=== PATIENT | female | born 1950 | race Two or more races ===

== ENCOUNTER 2020-11-01 09:41 | Inpatient (IN) | payer MEDICARE, MEDICAID ==
[~2020-11-01] VITALS: Ht 154.9 cm; Wt 86.1 kg
[2020-11-01 10:17] LABS: Hemoglobin 12.5 g/dL (12.2-16.2); Mean Corpuscular Hemoglobin 30.2 pg (28.0-32.0)
[2020-11-01 10:19] LABS: Hematocrit 37.8 % (36.0-46.0); Mean Corpuscular Hgb Conc. 33.1 g/dL (32.0-36.0); Mean Corpuscular Volume 91.1 fL (80.0-100.0); Platelet Count (auto) 254 10^3/uL (140-450); Red Blood Cells 4.14 10^6/uL (4.0-5.20); Red Cell Distribution Width 14.8 % (11.8-14.3)
[2020-11-01 10:25] LABS: Band Neutrophils % (manual) 0; Basophils % (manual) 0 (0.0-2.0); Blast Cells 0; Metamyelocytes % 0; Monocytes % (manual) 0 (0-12); Myelocytes % 0; Promyelocytes % 0; Reactive Lymphocytes 0; White Blood Cell 34.4 10^3/uL (4.4-10.8)
[2020-11-01 10:33] LABS: Albumin 3.3 g/dL (3.4-5.0); Anion Gap 4 (5-15); Blood Urea Nitrogen 14 mg/dL (7-18); Calcium 8.7 mg/dL (8.5-10.1); Carbon Dioxide 29 mmol/L (21-32); Chloride 107 mmol/L (98-107); Glucose 94 mg/dL (74-106); Potassium 4.2 mmol/L (3.5-5.1); Sodium 140 mmol/L (136-145)
[2020-11-01 10:39] LABS: Alanine Aminotransferase 257 U/L (13-56); Alkaline Phosphatase 175 U/L (45-117); Aspartate Aminotransferase 111 U/L (15-37); BUN/Creatinine Ratio 19.4; Bilirubin, Total 1.6 mg/dL (0.2-1.0); GFR African American 103 mL/min; GFR Non-African American 85 mL/min; Total Protein 6.7 g/dL (6.4-8.2)
[2020-11-01 11:16] LABS: Eosinophils % (manual) 2 (0-7); Lymphocytes % (manual) 83 (10.0-50.0)
[2020-11-01 12:41] LABS: Amylase 78 U/L (25-115); Lipase 119 U/L (73-393)
[2020-11-01 15:14] LABS: Urine Bacteria NONE SEEN /hpf (None Seen); Urine Blood 1+ /uL (Negative); Urine Specific Gravity 1.009 (1.001-1.035); Urine WBC <1 /hpf (0 - 5)
[2020-11-01] MEDS ORDERED: NITROGLYCERIN 0.4 MG SL TAB SL PRN ×2 (17:15→19:45)
[2020-11-01] MEDS ORDERED: MORPHINE SULF INJ 2 MG/ML SYRINGE 1ML IV PRN ×3 (17:15→19:45)
[2020-11-01] MEDS ORDERED: PANT40T PO (17:27)
[2020-11-01] MEDS ORDERED: DOCU100T15 PO (17:27)
[2020-11-01] MEDS ORDERED: CHOL20007 PO (17:27)
[2020-11-01] MEDS ORDERED: ALBUAER3 IN (17:27)
[2020-11-01] MEDS ORDERED: MET50T PO (17:27)
[2020-11-01] MEDS ORDERED: POM PO (17:27)
[2020-11-01] MEDS ORDERED: DOCUSATE SOD 100 MG CAP PO PRN (19:45)
[2020-11-01] MEDS ORDERED: ACETAMINOPHEN 325 MG TAB PO PRN (19:45)
[2020-11-01] MEDS: SODIUM CHLORIDE 0.9% 1,000 ML IV SCH (19:45)
[2020-11-01] MEDS ORDERED: LACTATED RINGER'S 1,000 ML IV ONE (19:45)
[2020-11-01] MEDS ORDERED: PANTOPRAZOLE 40 MG/10 ML VIAL INJ IV ONE (19:45)
[2020-11-01] MEDS ORDERED: HYDROcodone-ACET 5/325MG TAB PO PRN (19:45)
[2020-11-01] MEDS ORDERED: SUCRALFATE 1 GM TAB PO ONE (19:45)
[2020-11-01] MEDS ORDERED: ONDANSETRON HCL 4 MG/2 ML VIAL IV PRN (19:45)
[2020-11-01] MEDS ORDERED: LORazepam 0.5 MG TAB PO PRN (19:45)
[2020-11-01] MEDS ORDERED: METOPROLOL SUCCINATE XL 50 MG TAB PO ONE (19:45)
[2020-11-01] MEDS ORDERED: hydrALAZINE HCL 20 MG/ML VL IV PRN (19:45)
[2020-11-01] MEDS ORDERED: ALUM & MAG HYDROX-SIMETH LIQ(MAALOX) 30 ML PO PRN (19:45)
[2020-11-01] MEDS: ATORVASTATIN 20 MG TAB PO SCH (22:00)
[2020-11-01 23:02] LABS: Cholesterol 145 mg/dL (< 200); HDL Cholesterol 49 mg/dL (40-59); LDL Cholesterol 81 mg/dL (< 100); Triglycerides 73 mg/dL (< 150)
[2020-11-02 01:20] VITALS: BP 130/76
[2020-11-02 04:52] VITALS: BP 120/75
[2020-11-02 05:13] LABS: Alcohol, Urine < 3.0 mg/dL (0-10); Amphetamine Screen, Urine NEGATIVE (NEGATIVE); Barbiturate Scree,Urine NEGATIVE (NEGATIVE); Benzodiazephine Screen, Urine NEGATIVE (NEGATIVE); Cannabinoid Screen, Urine NEGATIVE (NEGATIVE); Cocaine Screen, Urine NEGATIVE (NEGATIVE); Opiate Scree,Urine NEGATIVE (NEGATIVE); Phencyclidine Screen, Urine NEGATIVE (NEGATIVE)
[2020-11-02] MEDS: SUCRALFATE 1 GM TAB PO SCH ×4 (06:35→21:56)
[2020-11-02 08:00] VITALS: BP 110/67
[2020-11-02] MEDS ORDERED: ADENOSINE 69 MG in GIVE UN-DILUTED 0 ML IV STA (09:13)
[2020-11-02] MEDS: SODIUM CHLORIDE 0.9% 1,000 ML IV SCH ×2 (10:55→22:25)
[2020-11-02] MEDS: PANTOPRAZOLE 40 MG/10 ML VIAL INJ IV SCH (11:43)
[2020-11-02] MEDS: ENOXAPARIN SOD 40 MG/0.4 ML SYRINGE SC SCH (11:43)
[2020-11-02] MEDS: METOPROLOL SUCCINATE XL 50 MG TAB PO SCH (11:44)
[2020-11-02] MEDS: ASPirin 81 mg TAB PO SCH (11:44)
[2020-11-02 16:00] VITALS: BP 111/62
[2020-11-02] MEDS: ATORVASTATIN 20 MG TAB PO SCH (21:56)
[2020-11-02 22:00] VITALS: BP 129/63
[2020-11-03 05:00] VITALS: BP 92/69
[2020-11-03] MEDS: SUCRALFATE 1 GM TAB PO SCH ×2 (06:53→11:37)
[2020-11-03 08:53] VITALS: BP 116/52
[2020-11-03] MEDS: PANTOPRAZOLE 40 MG/10 ML VIAL INJ IV SCH (09:56)
[2020-11-03] MEDS: METOPROLOL SUCCINATE XL 50 MG TAB PO SCH (09:56)
[2020-11-03] MEDS: ENOXAPARIN SOD 40 MG/0.4 ML SYRINGE SC SCH (09:57)
[2020-11-03] MEDS: ASPirin 81 mg TAB PO SCH (09:57)
[2020-11-03] MEDS ORDERED: IMBRUVICA 140 MG PO SCH (10:00)
[2020-11-03] MEDS: SODIUM CHLORIDE 0.9% 1,000 ML IV SCH (11:37)
== END 2020-11-03 15:00 | disposition home or self-care (01) | DRG 303 ==
LOC: ER 09:41 → TELE 17:09 → TELE-EAST 23:50 → TELE-CENTR 11-02 20:30
PROVIDERS: ADMIT Hospitalist; ATTEND Family Medicine
DX: I25.10 Atherosclerotic heart disease of native coronary artery without angina pectoris (principal); C91.10 Chronic lymphocytic leukemia of B-cell type not having achieved remission; I10 Essential (primary) hypertension; E78.5 Hyperlipidemia, unspecified; D35.01 Benign neoplasm of right adrenal gland; E66.01 Morbid (severe) obesity due to excess calories; J45.909 Unspecified asthma, uncomplicated; K57.30 Diverticulosis of large intestine without perforation or abscess without bleeding; Z82.49 Family history of ischemic heart disease and other diseases of the circulatory system; Z90.710 Acquired absence of both cervix and uterus; Z68.34 Body mass index [BMI] 34.0-34.9, adult
CPT/HCPCS: 36415; 71045; 74176; 78452; 80053; 80061; 80307; 81001; 82150; 83036; 83690; 84484; 85007; 85027; 87040; 87086; 87426; 93005; 93017; 93306; 96360; C9113; G0378; J0153

== ENCOUNTER 2021-07-19 15:35 | Emergency (ER) | payer MEDICARE, MEDICAID ==
[~2021-07-19] VITALS: Ht 157.5 cm; Wt 77.6 kg
[~2021-07-19 15:35] MED LIST: ALBUAER3 IN; CHOL20007 PO; DOCU100T15 PO; MET50T PO; PANT40T PO; POM PO
[2021-07-19 16:18] LABS: Hematocrit 40.4 % (36.0-46.0); Hemoglobin 13.2 g/dL (12.2-16.2); Mean Corpuscular Hemoglobin 29.6 pg (28.0-32.0); Mean Corpuscular Hgb Conc. 32.8 g/dL (32.0-36.0); Mean Corpuscular Volume 90.3 fL (80.0-100.0); Red Blood Cells 4.47 10^6/uL (4.0-5.20); Red Cell Distribution Width 14.4 % (11.8-14.3); White Blood Cell 18.8 10^3/uL (4.4-10.8)
[2021-07-19 16:20] LABS: Basophils % (manual) 0 (0.0-2.0); Blast Cells 0; Eosinophils % (manual) 0 (0-7); Metamyelocytes % 0; Myelocytes % 0; Promyelocytes % 0; Reactive Lymphocytes 0
[2021-07-19 16:36] LABS: Albumin 3.4 g/dL (3.4-5.0); Anion Gap 4 (5-15); Blood Urea Nitrogen 16 mg/dL (7-18); CRP High Sensitivity 0.28 mg/dL (< 0.3); Calcium 8.6 mg/dL (8.5-10.1); Carbon Dioxide 29 mmol/L (21-32); Chloride 108 mmol/L (98-107); Glucose 141 mg/dL (74-106); Potassium 3.6 mmol/L (3.5-5.1); Sodium 141 mmol/L (136-145)
[2021-07-19 16:42] LABS: Alanine Aminotransferase 30 U/L (13-56); Alkaline Phosphatase 59 U/L (45-117); Aspartate Aminotransferase 32 U/L (15-37); BUN/Creatinine Ratio 15.1; Bilirubin, Total 0.4 mg/dL (0.2-1.0); GFR African American 66 mL/min; GFR Non-African American 54 mL/min; Total Protein 6.4 g/dL (6.4-8.2)
[2021-07-19 16:49] LABS: Band Neutrophils % (manual) 4; Lymphocytes % (manual) 64 (10.0-50.0); Monocytes % (manual) 2 (0-12)
[2021-07-19 17:50] VITALS: BP 112/48
== END 2021-07-19 17:52 | disposition home or self-care (01) ==
LOC: ER 15:35
DX: B34.2 Coronavirus infection, unspecified (principal); Z90.710 Acquired absence of both cervix and uterus; J45.909 Unspecified asthma, uncomplicated
CPT/HCPCS: 36415; 71045; 80053; 82728; 84484; 85007; 85027; 86141

== ENCOUNTER 2022-05-10 09:40 | Inpatient (IN) | payer MEDICARE, MEDICAID ==
[~2022-05-10] VITALS: Ht 154.9 cm; Wt 82.9 kg
[2022-05-10 10:41] LABS: Hematocrit 39.2 % (36.0-46.0); Hemoglobin 12.7 g/dL (12.2-16.2); Mean Corpuscular Hemoglobin 29.6 pg (28.0-32.0); Mean Corpuscular Hgb Conc. 32.4 g/dL (32.0-36.0); Mean Corpuscular Volume 91.4 fL (80.0-100.0); Red Blood Cells 4.29 10^6/uL (4.0-5.20); Red Cell Distribution Width 14.6 % (11.8-14.3); White Blood Cell 15.3 10^3/uL (4.4-10.8)
[2022-05-10 10:55] LABS: Band Neutrophils % (manual) 0; Basophils % (manual) 0 (0.0-2.0); Blast Cells 0; Metamyelocytes % 0; Myelocytes % 0; Promyelocytes % 0
[2022-05-10 11:00] LABS: Albumin 3.4 g/dL (3.4-5.0); Magnesium 2.2 mg/dL (1.6-2.6); Potassium 3.9 mmol/L (3.5-5.1)
[2022-05-10 11:05] LABS: BUN/Creatinine Ratio 25.3; Bilirubin, Total 0.7 mg/dL (0.2-1.0); Total Protein 6.3 g/dL (6.4-8.2)
[2022-05-10 11:25] LABS: Urine WBC None Seen /hpf (0 - 5)
[2022-05-10 11:35] LABS: Urine Bacteria NONE SEEN /hpf (None Seen); Urine Blood 1+ /uL (Negative); Urine Specific Gravity 1.007 (1.001-1.035)
[2022-05-10 12:59] LABS: Eosinophils % (manual) 1 (0-7); Lymphocytes % (manual) 71 (10.0-50.0); Monocytes % (manual) 7 (0-12); Reactive Lymphocytes 2
[2022-05-10] MEDS ORDERED: LACTATED RINGER'S 1,000 ML IV ONE (13:45)
[2022-05-10] MEDS ORDERED: METOCLOPRAMIDE HCL 5MG/ml INJ 2ml VIAL IV ONE (13:45)
[2022-05-10] MEDS ORDERED: MECLIZINE HCL 25 MG TAB PO ONE (13:45)
[2022-05-10] MEDS ORDERED: ONDANSETRON HCL 4 MG/2 ML VIAL IV PRN (16:45)
[2022-05-10] MEDS ORDERED: DOCUSATE SOD 100 MG CAP PO PRN (16:45)
[2022-05-10] MEDS ORDERED: MECLIZINE HCL 25 MG TAB PO PRN (16:45)
[2022-05-10] MEDS ORDERED: ACETAMINOPHEN 325 MG TAB PO PRN (16:45)
[2022-05-10] MEDS: ENOXAPARIN SOD 40 MG/0.4 ML SYRINGE SC SCH (18:44)
[2022-05-10] MEDS: SODIUM CHLORIDE 0.9% 1,000 ML IV SCH ×2 (18:44→21:44)
[2022-05-10] MEDS: SODIUM CHLOR 0.9% PF (SALINE LOCK) 10ML VIAL/SYR IV SCH (21:44)
[2022-05-10 22:00] VITALS: BP 145/64
[2022-05-11 05:00] VITALS: BP 131/50
[2022-05-11] MEDS: SODIUM CHLOR 0.9% PF (SALINE LOCK) 10ML VIAL/SYR IV SCH ×3 (06:38→23:04)
[2022-05-11 09:00] VITALS: BP 142/47
[2022-05-11] MEDS: ENOXAPARIN SOD 40 MG/0.4 ML SYRINGE SC SCH (09:46)
[2022-05-11 13:00] VITALS: BP 141/53
[2022-05-11] MEDS: SODIUM CHLORIDE 0.9% 1,000 ML IV SCH ×2 (13:07→23:04)
[2022-05-11] MEDS ORDERED: MECLIZINE HCL 25 MG TAB PO ONE (16:45)
[2022-05-11] MEDS ORDERED: MECLIZINE HCL 25 MG TAB PO PRN (16:45)
[2022-05-11 16:58] VITALS: BP 130/44
[2022-05-11] MEDS ORDERED: IMBRUVICA 140 MG PO SCH (17:00)
[2022-05-11 21:53] VITALS: BP 137/57
[2022-05-12 04:42] VITALS: BP 134/69
[2022-05-12 05:33] LABS: Calcium 8.3 mg/dL (8.5-10.1); Potassium 3.9 mmol/L (3.5-5.1)
[2022-05-12 05:35] LABS: BUN/Creatinine Ratio 20.9; Phosphorus 3.3 mg/dL (2.5-4.90)
[2022-05-12] MEDS: SODIUM CHLOR 0.9% PF (SALINE LOCK) 10ML VIAL/SYR IV SCH ×2 (06:40→15:01)
[2022-05-12] MEDS: SODIUM CHLORIDE 0.9% 1,000 ML IV SCH ×2 (06:46→17:25)
[2022-05-12] MEDS: IMBRUVICA 140 MG PO SCH (06:50)
[2022-05-12 08:06] LABS: RPR Non Reactive (Non Reactive)
[2022-05-12] MEDS: PANTOPRAZOLE 40 MG TAB PO SCH (09:20)
[2022-05-12] MEDS: ENOXAPARIN SOD 40 MG/0.4 ML SYRINGE SC SCH (09:21)
[2022-05-12] MEDS: AZITHROMYCIN 250 MG TAB PO SCH (09:21)
[2022-05-12 09:24] VITALS: BP 136/63
[2022-05-12 12:20] VITALS: BP 133/57
[2022-05-12 17:14] VITALS: BP 127/62
[2022-05-12 22:00] VITALS: BP 132/60
[2022-05-13] MEDS: SODIUM CHLORIDE 0.9% 1,000 ML IV SCH (03:00)
[2022-05-13 05:00] VITALS: BP 132/64
[2022-05-13 05:03] LABS: Hemoglobin 11.8 g/dL (12.2-16.2); Mean Corpuscular Hemoglobin 29.9 pg (28.0-32.0); Mean Corpuscular Hgb Conc. 32.9 g/dL (32.0-36.0); Mean Corpuscular Volume 91.1 fL (80.0-100.0); Red Blood Cells 3.95 10^6/uL (4.0-5.20); Red Cell Distribution Width 14.1 % (11.8-14.3)
[2022-05-13 05:05] LABS: Basophils % (manual) 0 (0.0-2.0); Blast Cells 0; Eosinophils % (manual) 0 (0-7); Metamyelocytes % 0; Myelocytes % 0; Promyelocytes % 0; Reactive Lymphocytes 0
[2022-05-13 05:13] LABS: BUN/Creatinine Ratio 18.3; Calcium 8.7 mg/dL (8.5-10.1); Potassium 3.9 mmol/L (3.5-5.1)
[2022-05-13] MEDS: SODIUM CHLOR 0.9% PF (SALINE LOCK) 10ML VIAL/SYR IV SCH ×3 (05:48→11:50)
[2022-05-13] MEDS: IMBRUVICA 140 MG PO SCH (06:36)
[2022-05-13 07:07] LABS: Band Neutrophils % (manual) 1; Lymphocytes % (manual) 75 (10.0-50.0); Monocytes % (manual) 5 (0-12)
[2022-05-13 08:57] VITALS: BP 134/67
[2022-05-13] MEDS: ENOXAPARIN SOD 40 MG/0.4 ML SYRINGE SC SCH (09:53)
[2022-05-13] MEDS: AZITHROMYCIN 250 MG TAB PO SCH (09:53)
[2022-05-13 11:03] LABS: Folate (Folic Acid) 21.31 ng/mL (5.38-24)
[2022-05-13] MEDS ORDERED: MECL25CH38 PO (11:29)
[2022-05-13] MEDS ORDERED: AZIT250T8 PO (11:29)
[2022-05-13] MEDS: PANTOPRAZOLE 40 MG TAB PO SCH (11:50)
[2022-05-13 13:23] VITALS: BP 147/73
[2022-05-13 17:10] VITALS: BP 118/61
== END 2022-05-13 20:00 | disposition home or self-care (01) | DRG 149 ==
LOC: ER 09:40 → TELE-CENTR 16:35
PROVIDERS: ADMIT Internal Medicine; ATTEND Internal Medicine
DX: H81.10 Benign paroxysmal vertigo, unspecified ear (principal); C91.10 Chronic lymphocytic leukemia of B-cell type not having achieved remission; I44.4 Left anterior fascicular block; Z20.822 Contact with and (suspected) exposure to COVID-19; J45.909 Unspecified asthma, uncomplicated; I10 Essential (primary) hypertension; E66.9 Obesity, unspecified; Z90.710 Acquired absence of both cervix and uterus; Z68.34 Body mass index [BMI] 34.0-34.9, adult
CPT/HCPCS: 36415; 70450; 70551; 71045; 80048; 80053; 80069; 81001; 82306; 82607; 82746; 83735; 83880; 84443; 84484; 85007; 85027; 85049; 85652; 86141; 86592; 87040; 93005; 96360; 96361; 97110; 97116; 97163; 97530; G0378

== ENCOUNTER 2022-11-25 10:29 | Emergency (ER) | payer MEDICARE, MEDICAID ==
[~2022-11-25] VITALS: Ht 157.5 cm; Wt 85.0 kg
[~2022-11-25 10:29] MED LIST changes: +AZIT250T8 PO; +MECL25CH38 PO
[2022-11-25 11:10] LABS: Hematocrit 39.2 % (36.0-46.0); Hemoglobin 13.1 g/dL (12.2-16.2); Mean Corpuscular Hemoglobin 30.4 pg (28.0-32.0); Mean Corpuscular Hgb Conc. 33.4 g/dL (32.0-36.0); Mean Corpuscular Volume 90.9 fL (80.0-100.0); Red Blood Cells 4.31 10^6/uL (4.0-5.20); Red Cell Distribution Width 14.7 % (11.8-14.3); White Blood Cell 15.2 10^3/uL (4.4-10.8)
[2022-11-25 11:36] LABS: Albumin 3.6 g/dL (3.4-5.0); BUN/Creatinine Ratio 25.7; Calcium 8.8 mg/dL (8.5-10.1); Potassium 4.1 mmol/L (3.5-5.1)
[2022-11-25 11:39] LABS: Bilirubin, Total 0.6 mg/dL (0.2-1.0)
[2022-11-25 11:55] LABS: Basophils % (manual) 0 (0.0-2.0); Blast Cells 0; Eosinophils % (manual) 0 (0-7); Metamyelocytes % 0; Myelocytes % 0; Promyelocytes % 0; Reactive Lymphocytes 0
[2022-11-25 12:27] LABS: Band Neutrophils % (manual) 30; Lymphocytes % (manual) 60 (10.0-50.0); Monocytes % (manual) 8 (0-12)
[2022-11-25 14:54] VITALS: BP 139/57
== END 2022-11-25 14:59 | disposition home or self-care (01) ==
LOC: ER 10:29
DX: R07.89 Other chest pain (principal); J45.909 Unspecified asthma, uncomplicated; I10 Essential (primary) hypertension; Z90.710 Acquired absence of both cervix and uterus; Z79.899 Other long term (current) drug therapy
CPT/HCPCS: 36415; 80053; 84484; 85007; 85027; 93005

== ENCOUNTER 2025-02-19 18:43 | Inpatient (IN) | payer MEDICARE, MEDICAID ==
[~2025-02-19] VITALS: Ht 157.5 cm; Wt 77.5 kg
[~2025-02-19 18:43] MED LIST changes: +AZIT-185 PO; -AZIT250T8 PO
--- NOTE | 2025-02-19 18:59 | ED.PDOC ---
GI ASSESSMENT HPI Comments 74 year old Kosovan speaking Female presents to the ED with a prior Hx of Leukemia, HTN, and Asthma associated to the c/c of N/V/D. Pt states that she has been experiencing N/V all day and has not been able to keep anything down "not even water". Pt notes that her Emesis is Yellow in color, and her /D is Black and Bloody. Pt also notes of a 9/10 MEJIA with no alleviating factors at this point in time. Pt denies any CP, Back Pain, SHx, Social Hx or ant other associated symptoms, modifiers, recent injuries or sick contacts present at this time. Time Seen by MD: 18:53 Primary Care Provider: KATIE Reviewed Notes: Nurses Notes, Medications, Allergies Allergies: Coded Allergies: NO KNOWN ALLERGIES (Unverified , 11/23/12) Home Meds Active Scripts Azithromycin (ZITHROMAX TABLET) 250 Mg Tb, 250 MG PO DAILY for 5 Days, #5 TAB Prov:MARITO MUELLER MD 05/13/22 Meclizine HCl (Meclizine) 25 Mg Chw, 25 MG PO BID for 5 Days, #10 CHW Prov:MARITO MUELLER MD 05/13/22 Reported Medications Metoprolol Tartrate (LOPRESSOR TABLET) 50 Mg Tb, 1 TAB PO DAILY 11/01/20 Albuterol Sulfate (VENTOLIN MDI) 90 Mcg Ih, 2 PUFF IN QIDP 11/01/20 Pantoprazole Sodium Sesquihydr (Pantoprazole Sodium) 40 Mg Tab, 40 MG PO DAILY 11/01/20 Docusate Sodium (Docusate Sodium) 100 Mg Tab, 100 MG PO BID 11/01/20 Cholecalciferol (VITAMIN D3) 2,000 Unit Tab, 1 TAB PO DAILY 11/01/20 Patients Own Medication (PATIENTS OWN MEDICATION) ., 3 CAP PO DAILY PTS OWN MED DRUG: IMBRUVICA 140 MG CAP FREQ: 3 CAPS PO DAILY RX# EXP: DATE DISP: TECH: [facility]: 11/01/20 Information Source: Patient Mode of Arrival: Ambulatory Timing: Hours Duration: Since onset, Hours Prehospital treatment: None Quality: Aching Vomitus: Watery, Mucous Stool: Black Severity: Moderate Recent: None Recent Hx of: None Pain Location: Diffuse Modifying Factors: Food, Movement Associated sign and symptoms: Nausea, Vomiting, Diarrhea, Abdominal Pain Past Medical History PAST MEDICAL HISTORY: Asthma, HTN Past Medical History (Other): Leukemia Surgical History: Hysterectomy 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 Pertinent OUTSIDE MEDICAL SALES REPRESENTATIVE History Family History Family History: Reviewed,noncontributory to illness Social History Smoker: Non-Smoker Alcohol: Denies ETOH Use Drugs: Denies Drug Use Lives In: Home Constitutional: denies: chills, diaphoresis, fatigue, fever, malaise, sweats, weakness, others EENTM: denies: blurred vision, double vision, ear bleeding, ear discharge, ear drainage, ear pain, ear ringing, eye pain, eye redness, hearing loss, mouth pain, mouth swelling, nasal discharge, nose bleeding, nose congestion, nose pain, photophobia, tearing, throat pain, throat swelling, voice changes, others Respiratory: denies: cough, hemoptysis, orthopnea, SOB at rest, shortness of breath, SOB with excertion, stridor, wheezing, others Cardiovascular: denies: chest pain, dizzy spells, diaphoresis, Dyspnea on exertion, edema, irregular heart beat, left arm pain, lightheadedness, palpitations, PND, syncope, others Gastrointestinal: reports: abdominal pain, diarrhea, nausea, vomiting; denies: abdomen distended, blood streaked bowels, constipated, dysphagia, difficulty swallowing, hematemesis, melena, poor appetite, poor fluid intake, rectal bleeding, rectal pain, others Genitourinary: denies: abnormal vagina bleeding, burning, dyspareunia, dysuria, flank pain, frequency, hematuria, incontinence, pain, , vagina discharge, urgency, others Neurological: reports: headache; denies: dizziness, fainting, left sided numbness, left sided weakness, numbness, paresthesia, pre-existing deficit, right sided numbness, right sided weakness, seizure, speech problems, tingling, tremors, weakness, others Musculoskeletal: denies: back pain, gout, joint pain, joint swelling, muscle pain, muscle stiffness, neck pain, others Integumetry: denies: bruises, change in color, change in hair/nails, dryness, laceration, lesions, lumps, rash, wounds, others Allergic/Immunocompromised: denies: Difficulty Healing, Frequent Infections, Hives, Itching, others Hematologic/Lymphatic: denies: anemia, blood clots, easy bleeding, easy bruising, swollen glands, others Endocrine: denies: excessive hunger, excessive sweating, excessive thirst, excessive urination, flushing, intolerance to cold, intolerance to heat, unexplained weight gain, unexplained weight loss, others Psychiatric: denies: anxiety, bipolar disorder, depression, hopeless, panic disorder, schizophrenia, sleepless, suicidal, others All Other Systems: Reviewed and Negative Physical Exam General Appearance: Moderate Distress HEENT: Normal ENT Inspection, Pharynx Normal Neck: Full Range of Motion, Normal Respiratory: Chest Non-Tender, Normal Breath Sounds Cardiovascular: No Edema, Normal Peripheral Pulses, Regular Rate/Rhythm Breast Exam: Deferred Gastrointestinal: Diffuse, Non Tender, Soft Genitalia: Deferred Pelvic: Deferred Rectal: Deferred Extremities: No calf tenderness, Normal range of motion, Non-tender Musculoskeletal : Apperance: Normal Neurologic: Alert, Normal Affect, Normal Mood Cerebellar Function: Normal Reflexes: Normal Skin: Dry, Normal Color, Warm Lymphatic: No Adenopathy Was a procedure done? Was a procedure done?: No GI differential Dx Differential Diagnosis: Appendicitis, Bowel Obstruction, Cholecystitis, Diverticular disease, Esophagitis, Gastritis/PUD, Gastroenteritis, GI hemor rhage, Ischemic Bowel, Electrolyte Imbalance, Food Poisoning, Other X-Ray, Labs, Meds, VS Vital Signs Date Time Temp Pulse Resp B/P (MAP) Pulse Ox O2 Delivery O2 Flow Rate FiO2 02/19/25 18:55 98.3 100 16 117/64 (81) 96 98.3 Lab Test 02/19/25 19:02 Range/Units White Blood Count 15.4 H 4.4-10.8 10^3/uL Red Blood Count 4.83 4.0-5.20 10^6/uL Hemoglobin 15.1 12.2-16.2 g/dL Hematocrit 44.7 36.0-46.0 % Mean Corpuscular Volume 92.5 80.0-100.0 fL Mean Corpuscular Hemoglobin 31.2 28.0-32.0 pg Mean Corpuscular Hemoglobin Concent 33.8 32.0-36.0 g/dL Red Cell Distribution Width 13.9 11.8-14.3 % Platelet Count 220 140-450 10^3/uL Mean Platelet Volume 8.9 6.9-10.8 fL Neutrophils (%) (Auto) 80.7 H 37.0-80.0 % Lymphocytes (%) (Auto) 16.4 10.0-50.0 % Monocytes (%) (Auto) 2.4 0.0-12.0 % Eosinophils (%) (Auto) 0.1 0.0-7.0 % Basophils (%) (Auto) 0.4 0.0-2.0 % Neutrophils # (Auto) 12.4 H 1.6-8.6 10 ^3/uL Lymphocytes # (Auto) 2.5 0.4-5.4 10 ^3/uL Monocytes # (Auto) 0.4 0-1.3 10 ^3/uL Eosinophils # (Auto) 0 0-0.8 10 ^3/uL Basophils # (Auto) 0.1 0-0.2 10 ^3/uL Nucleated Red Blood Cells 0.0 % Prothrombin Time 10.4 9.3-11.8 sec Prothrombin Time INR 0.98 0.9-1.15 Activated Partial Thromboplast Time 24.7 24.5-34.5 SEC Sodium Level 141 136-145 mmol/L Potassium Level 3.6 3.5-5.1 mmol/L Chloride Level 105 98-107 mmol/L Carbon Dioxide Level 27 20-31 mmol/L Anion Gap 9 5-15 Blood Urea Nitrogen 14 9-23 mg/dL Creatinine 0.74 0.550-1.02 mg/dL Glomerular Filtration Rate Calc 85 >90 mL/min BUN/Creatinine Ratio 18.9 10.0-20.0 Serum Glucose 125 H 74-106 mg/dL Lactic Acid Level 1.4 0.4-2.0 mmol/L Calcium Level 9.3 8.7-10.4 mg/dL Total Bilirubin 1.0 0.2-1.0 mg/dL Aspartate Amino Transferase (AST) 22 13-40 U/L Alanine Aminotransferase (ALT) 19 7-40 U/L Alkaline Phosphatase 57 46-116 U/L Total Protein 6.6 5.7-8.2 g/dL Albumin 4.6 3.2-4.8 g/dL Lipase 71 H 12-53 U/L PATIENT: CARLOS YUSUF ACCT: [id number] UNIT: [id number] : 1950 LOC: ER ROOM / BED: / AGE / SEX: 74 / F ADM STATUS: REG ER SERVICE 55 ORDERING PHYSICIAN: CHINA BOWSER MD PROCEDURE(s): CXRP - CHEST PORTABLE REASON: SOB ORDER NUMBER(s): [id number], ACCESSION NUMBER(s): [id number] CHEST RADIOGRAPH Indication: SOB Technique: Single frontal view of the chest was obtained Comparison: CHEST PORTABLE on DOS: 05/10/22, CXRP on DOS: 05/10/22, CHEST PORTABLE on DOS: 07/19/21 FINDINGS: Lines and Tubes: None Lungs: No focal consolidation. Diffuse interstitial prominence. Mild elevation of the right hemidiaphragm. Pleura: No effusion. No pneumothorax. Cardiomediastinal contours: Unremarkable Bones: No acute osseous abnormality. IMPRESSION: Mild pulmonary vascular congestion. ENT: CARLOS YUSUF ACCT: [id number] UNIT: [id number] : 1950 LOC: ER ROOM / BED: / AGE / SEX: 74 / F ADM STATUS: REG ER SERVICE 50 ORDERING PHYSICIAN: CHINA BOWSER MD PROCEDURE(s): ABPLIV - CT AB PEL WITH IV CON ONLY REASON: abd pain, N/V ORDER NUMBER(s): [id number], ACCESSION NUMBER(s): [id number] Exam: CT CT AB PEL WITH IV CON ONLY History: abd pain, N/V Comparison Study: None TECHNIQUE: Multidetector CT of the abdomen pelvis with IV contrast. Axial, coronal and sagittal multiplanar reformats were obtained from the axial data set by the technologist. Radiation Dose Information: CT Dose: CTDI volume is 20.89 mGy. Dose-length product is 1296.74 mGy*cm FINDINGS: Bibasilar atelectasis. Partially visualized heart is unremarkable. Liver, spleen, pancreas and left adrenal gland are unremarkable. 3.7 x 2.6 cm right adrenal nodule. The gallbladder is decompressed. 1.2 cm right renal upper pole hypodense lesion with does not measure simple fluid. Subcentimeter hypodense left renal lesion that is too small to characterize. Otherwise, kidneys, ureters and urinary bladder unremarkable. Status post hysterectomy. Mild gastric wall thickening. Mild wall thickening of proximal small bowel loops. The remainder of the small bowel loops are fluid-filled and no ndistended. Appendix is unremarkable. Mild wall thickening of the ascending colon. Sigmoid diverticulosis without diverticulitis. No evidence of intraperitoneal free air or free fluid. No evidence of aortic aneurysm or dissection. Mild atherosclerotic calcification of the aorta and bilateral iliacs. No significant lymphadenopathy. Tiny fat containing umbilical hernia. No destructive osseous lesions noted. Multilevel gmlj-ef-pudslhlk degenerative changes of the thoracic and lumbar spine. Apkf-ff-ednireup loss of vertebral body height of L5 of unknown chronicity. Sclerotic focus of the left posterior S3 which may represent a bone island with a blastic lesion not excluded. IMPRESSION: Mild wall thickening of the ascending colon. Correlate for mild colitis. Mild wall thickening of the stomach and proximal small bowel loops which may be due to inadequate distention/gastroenteritis. 3.7 x 2.6 cm right adrenal mass. 1.2 cm right renal upper pole parapelvic hypodense lesion with additional subcentimeter hypodense left renal lesions that are too small to characterize. Renal ultrasound is recommended for further evaluation. Additional findings as above. Time of 1ST Reevaluation: 19:26 Reevaluation 1ST: Unchanged Patient Education/Counseling: Diagnosis, Treatment Family Education/Counseling: No Family Present Sepsis Sepsis Reasesment Focused Exam Orders: Laboratory Tests 02/19/25 19:02: Lactic Acid Level 1.4 Departure 1 Departure Time of Disposition: 21:29 Impression: Primary Impression: Intractable vomiting Additional Impressions: Dehydration Adrenal mass Right renal mass Disposition: ADMITTED INPATIENT Condition: Guarded Discharged With: Self Comments Nausea and Vomiting with Incidental Adrenal and Renal Masses Chief Complaint: Nausea and vomiting x 4 days History of Present Illness: 74-year-old female with history of hypertension and leukemia presents to the ED with a 4-day history of intractable nausea and vomiting. Patient reports inability to keep anything down during this period. She endorses dark stools at home, raising concern for possible upper GI bleeding. Patient's symptoms have been refractory to initial interventions in the ED. Review of Systems: Constitutional: Unable to tolerate oral intake Gastrointestinal: Positive for nausea, vomiting, dark stools All other systems reviewed and negative Medications: No current medications documented Allergies: No known allergies documented Past Medical History: 1. Leukemia 2. 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 Problem List: 1. Intractable vomiting 2. Dehydration 3. Adrenal mass 4. Right renal mass 5. History of leukemia 6. Melena Differential Diagnosis: 1. Gastroenteritis 2. Medication-induced gastritis 3. Upper GI bleeding 4. Metastatic disease 5. Primary adrenal/renal neoplasm 6. Pancreatitis ED Course: Patient received IV fluids, morphine for pain management, and Zofran for nausea. Despite interventions, continued to have difficulty tolerating oral intake. Given findings of masses and continued symptoms, decision made to admit. Assessment and Plan: 1. Intractable vomiting and dehydration: - Admit for IV fluid hydration and antiemetic therapy - Continue NPO status - Serial metabolic panels to monitor electrolytes 2. Adrenal and renal masses (new diagnosis): - Oncology consultation during admission - Further imaging studies as recommended by oncology - Consider relation to known leukemia history 3. Possible Upper GI bleeding (melena): - Monitor hemoglobin/hematocrit - Consider GI consultation if bleeding confirmed 4. Leukemia: - Oncology to evaluate current status - Review recent treatment history Billing Information: ICD-10: R11.2 - Persistent vomiting ICD-10: E86.0 - Dehydration ICD-10: D75.9 - Disease of blood and blood-forming organs, unspecified ICD-10: R19.5 - Other fecal abnormalities ICD-10: D49.7 - Neoplasm of unspecified behavior of endocrine glands and other parts of nervous system Critical Care Note Critical Care Time?: Yes Critical care comment: Total critical care time: Approximately 36 minutes Due to a high probability of clinically significant, life threatening deterioration, the patient required my highest level of preparedness to intervene emergently and I personally spent this critical care time directly and personally managing the patient. This critical care time included obtaining a history; examining the patient; pulse oximetry; ordering and review of studies; arranging urgent treatment with development of a management plan; evaluation of patient's response to treatment; frequent reassessment; and, discussions with other providers. This critical care time was performed to assess and manage the high probability of imminent, life-threatening deterioration that could result in multi-organ failure. It was exclusive of separately billable procedures and treating other patients. Stability Stability form required: No Heart Score Heart Score: Heart Score Response (Comments) Value History N/A 0 EKG N/A 0 Age N/A 0 Risk Factors N/A 0 Troponin N/A 0 Total 0 I personally scribed for CIHNA BOWSER MD (LING) on 02/19/25 at 18:59. Electronically submitted by Laron Hernandez ([email or web address]). I personally scribed for CHINA BOWSER MD (LING) on 02/19/25 at 21:11. Electronically submitted by Laron Hernandez ([email or web address]). I personally scribed for CHINA BOWSER MD ([email or web address]) on 02/19/25 at 21:28. Electronically submitted by Laron Hernandez ([email or web address]). CHINA BOWSER MD February 19, 2025 18:59
[2025-02-19] MEDS: ONDANSETRON HCL 4 MG/2 ML VIAL IV ONE (19:00)
[2025-02-19] MEDS: SODIUM CHLORIDE 0.9% 1,000 ML IVB ONE (19:00)
[2025-02-19] MEDS: MORPHINE SULFATE 4 MG/ML SYR/VIAL IV ONE (19:00)
[2025-02-19 19:16] LABS: Basophils # (auto) 0.1 10 ^3/uL (0-0.2); Basophils % (auto) 0.4 % (0.0-2.0); Eosinophils # (auto) 0 10 ^3/uL (0-0.8); Eosinophils % (auto) 0.1 % (0.0-7.0); Hematocrit 44.7 % (36.0-46.0); Hemoglobin 15.1 g/dL (12.2-16.2); Lymphocytes # (auto) 2.5 10 ^3/uL (0.4-5.4); Lymphocytes % (auto) 16.4 % (10.0-50.0); Mean Corpuscular Hemoglobin 31.2 pg (28.0-32.0); Mean Corpuscular Hgb Conc. 33.8 g/dL (32.0-36.0); Mean Corpuscular Volume 92.5 fL (80.0-100.0); Monocytes # (auto) 0.4 10 ^3/uL (0-1.3); Monocytes % (auto) 2.4 % (0.0-12.0); Neutrophils # (auto) 12.4 10 ^3/uL (1.6-8.6); Neutrophils % (auto) 80.7 % (37.0-80.0); Platelet Count (auto) 220 10^3/uL (140-450); Red Blood Cells 4.83 10^6/uL (4.0-5.20); Red Cell Distribution Width 13.9 % (11.8-14.3); White Blood Cell 15.4 10^3/uL (4.4-10.8)
[2025-02-19 19:41] LABS: Alanine Aminotransferase 19 U/L (7-40); Albumin 4.6 g/dL (3.2-4.8); Alkaline Phosphatase 57 U/L (46-116); Anion Gap 9 (5-15); Aspartate Aminotransferase 22 U/L (13-40); BUN/Creatinine Ratio 18.9 (10.0-20.0); Blood Urea Nitrogen 14 mg/dL (9-23); Calcium 9.3 mg/dL (8.7-10.4); Carbon Dioxide 27 mmol/L (20-31); Chloride 105 mmol/L (98-107); INR 0.98 (0.9-1.15); Partial Thromboplastin Time 24.7 SEC (24.5-34.5); Potassium 3.6 mmol/L (3.5-5.1); Prothrombin Time 10.4 sec (9.3-11.8); Sodium 141 mmol/L (136-145); Total Protein 6.6 g/dL (5.7-8.2)
[2025-02-19 19:45] LABS: Glucose 125 mg/dL (74-106); Lipase 71 U/L (12-53)
[2025-02-19] MEDS: IOHEXOL 300 MG/ML 100ML BOTTLE IJ ONE (20:39)
--- NOTE | 2025-02-19 21:08 | DVH ---
CHEST RADIOGRAPH Indication: SOB Technique: Single frontal view of the chest was obtained Comparison: CHEST PORTABLE on DOS: 05/10/22, CXRP on DOS: 05/10/22, CHEST PORTABLE on DOS: 07/19/21 FINDINGS: Lines and Tubes: None Lungs: No focal consolidation. Diffuse interstitial prominence. Mild elevation of the right hemidiaph ragm. Pleura: No effusion. No pneumothorax. Cardiomediastinal contours: Unremarkable Bones: No acute osseous abnormality. IMPRESSION: Mild pulmonary vascular congestion.
--- NOTE | 2025-02-19 21:20 | DVH ---
Exam: CT CT AB PEL WITH IV CON ONLY History: abd pain, N/V Comparison Study: None TECHNIQUE: Multidetector CT of the abdomen pelvis with IV contrast. Axial, coronal and sagittal multi planar reformats were obtained from the axial data set by the technologist. Radiation Dose Information: CT Dose: CTDI volume is 20.89 mGy. Dose-length product is 1296.74 mGy*cm FINDINGS: Bibasilar atelectasis. Partially visualized heart is unremarkable. Liver, spleen, pancreas and left adrenal gland are unremarkable. 3.7 x 2.6 cm right adrenal nodule. T he gallbladder is decompressed. 1.2 cm right renal upper pole hypodense lesion with does not measure simple fluid. Subcentimeter hypo dense left renal lesion that is too small to characterize. Otherwise, kidneys, ureters and urinary bl adder unremarkable. Status post hysterectomy. Mild gastric wall thickening. Mild wall thickening of proximal small bowel loops. The remainder of the small bowel loops are fluid-filled and nondistended. Appendix is unremarkable. Mild wall thickening of the ascending colon. Sigmoid diverticulosis withou t diverticulitis. No evidence of intraperitoneal free air or free fluid. No evidence of aortic aneurysm or dissection. Mild atherosclerotic calcification of the aorta and bi lateral iliacs. No significant lymphadenopathy. Tiny fat containing umbilical hernia. No destructive osseous lesions noted. Multilevel nvbh-wb-tvvqy ate degenerative changes of the thoracic and lumbar spine. Enlu-ju-yzoenatu loss of vertebral body he ight of L5 of unknown chronicity. Sclerotic focus of the left posterior S3 which may represent a bone island with a blastic lesion not excluded. IMPRESSION: Mild wall thickening of the ascending colon. Correlate for mild colitis. Mild wall thickening of the stomach and proximal small bowel loops which may be due to inadequate dis tention/gastroenteritis. 3.7 x 2.6 cm right adrenal mass. 1.2 cm right renal upper pole parapelvic hypodense lesion with additional subcentimeter hypodense lef t renal lesions that are too small to characterize. Renal ultrasound is recommended for further eval uation. Additional findings as above.
[2025-02-20] MEDS: metroNIDAZOLE 500MG/100ML 100 ML IV ONE (01:45)
[2025-02-20] MEDS ORDERED: DOCUSATE SOD 100 MG CAP PO PRN (01:45)
--- NOTE | 2025-02-20 01:59 | DVHHP2 ---
History of Present Illness Reason for Visit: Gastrointestinal bleed History of Present Illness The patient is a 74-year-old female with past medical history of leukemia, hypertension, and asthma who presented to [facility] ED with complaint of black stools. Patient/ reports symptoms progressively get worse with nausea, vomiting, headache, rating 9/10 numeric scale, getting worse that prompted this visit. Patient was seen and evaluated in the ED, laboratory data shows WBC 15.4, platelets 220, sodium 141, potassium 3.6, BUN 14, creatinine 0.74, glucose 125, lipase 71, blood pressure 117/64, heart rate 99, temperature 98.3 F, O2 saturation 96% on room air. Abdomen/pelvis CT revealing mild wall thickening of the ascending colon correlate for mild colitis; mild wall thickening of the stomach and proximal small bowel loops which may be due to inadequate distention/gastroenteritis, 3.7 x 2.6 cm right adrenal mass, 1.2 cm right renal upper pole parapelvic hydro dense lesion with additional subcentimeter hypodense left renal lesion that too small to characterize. Pat ient was started on IV antibiotic regimen Flagyl, please see medication orders section in the computer. On my assessment, at bedside, patient denied chest pain, no headache, no dizziness, no diaphoresis, no shortness of breaths, no diarrhea, no nausea, no vomiting, no fever, no chills. Patient was admitted for further evaluation and medical management. Past Medical History Asthma, HTN, Leukemia Past Surgical History Hysterectomy Family History Reviewed, noncontributory to the management of this case. Past Social History The patient lives at home, denies smoking, alcohol or illicit drugs abuse. Review of Systems Constitutional: No: Fever, Chills, Sweats, Weakness, Malaise, Other Eyes: No: Pain, Vision change, Conjunctivae inflammation, Eyelid inflammation, Other, Redness ENT: No: Ear pain, Ear discharge, Nose pain, Nose discharge, Nose congestion, Mouth pain, Mouth swelling, Throat pain, Throat swelling, Other Respiratory: No: Cough, Dry, Shortness of breath, SOB with excertion, Wheezing, Hemoptysis, Pleuritic Pain, Sputum, Wheezing, Other Cardiovascular: No: Chest Pain, Palpitations, Orthopnea, Paroxysmal Noc. Dyspnea, Edema, Lt Headedness, Other Gastrointestinal: Nausea, Vomiting, Abdominal Pain, Diarrhea; No: Constipation, Melena, Hematochezia, Other Genitourinary: No Dysuria, No Frequency, No Incontinence, No Hematuria, No Retention, No Other Musculoskeletal: No: other, neck pain, shoulder pain, arm pain, back pain, hand pain, leg pain, foot pain Skin: No: Rash, Lesions, Jaundice, Bruising, Other Neurological: No: Weakness, Numbness, Incoordination, Change in speech, Confusion, Seizures, Other Allergies: Coded Allergies: NO KNOWN ALLERGIES (Unverified , 11/23/12) Medications Current Medications Medications Dose Ordered Sig/Jeanette Route Start Time Stop Time Status Last Admin Dose Admin Ceftriaxone Sodium 50 ml @ 100 mls/hr DAILY@09 IV 02/20/25 09:00 Pantoprazole Sodium 40 mg DAILY IV 02/20/25 10:00 Metoprolol Tartrate 25 mg BID PO 02/20/25 10:00 Sodium Chloride 10 ml Q8HR IV 02/20/25 06:00 Acetaminophen/ Hydrocodone Bitart 1 tab Q4HP PRN PO 02/20/25 01:45 Ondansetron HCl 4 mg Q4HP PRN IV 02/20/25 01:45 Docusate Sodium 100 mg BIDPRN PRN PO 02/20/25 01:45 Acetaminophen 650 mg Q6HP PRN PO 02/20/25 01:45 Metronidazole 100 ml @ 100 mls/hr Q8HR IV 02/20/25 06:00 Exam Vital Signs Vital Signs Date Time Temp Pulse Resp B/P (MAP) Pulse Ox O2 Delivery O2 Flow Rate FiO2 02/19/25 18:55 98.3 100 16 117/64 (81) 96 98.3 General Appearance: Alert, Oriented X3, Cooperative, No acute distress HEENT: Atraumatic, PERRLA, EOMI, Mucous membr. moist/pink Respiratory: Normal air movement, Other (Pulmonary congestion) Cardiovascular: Regular rate, Normal S1, Normal S2, No murmurs Abdominal: Normal bowel sounds, Soft, No tenderness, No hepatospenomegaly, No masses Extremities: No clubbing, No cyanosis, No edema, Normal pulses, No tenderness/swelling Skin: No rashes, No breakdown, No significant lesion Neuro: Normal speech, Normal tone, Sensation intact, Cranial nerves 3-12 NL, Reflexes 2+, Other (Generalized weakness) Psych/Mental Status: Mental status NL, Mood NL Labs/Xrays Labs Test 02/19/25 19:02 Range/Units White Blood Count 15.4 H 4.4-10.8 10^3/uL Red Blood Count 4.83 4.0-5.20 10^6/uL Hemoglobin 15.1 12.2-16.2 g/dL Hematocrit 44.7 36.0-46.0 % Mean Corpuscular Volume 92.5 80.0-100.0 fL Mean Corpuscular Hemoglobin 31.2 28.0-32.0 pg Mean Corpuscular Hemoglobin Concent 33.8 32.0-36.0 g/dL Red Cell Distribution Width 13.9 11.8-14.3 % Platelet Count 220 140-450 10^3/uL Mean Platelet Volume 8.9 6.9-10.8 fL Neutrophils (%) (Auto) 80.7 H 37.0-80.0 % Lymphocytes (%) (Auto) 16.4 10.0-50.0 % Monocytes (%) (Auto) 2.4 0.0-12.0 % Eosinophils (%) (Auto) 0.1 0.0-7.0 % Basophils (%) (Auto) 0.4 0.0-2.0 % Neutrophils # (Auto) 12.4 H 1.6-8.6 10 ^3/uL Lymphocytes # (Auto) 2.5 0.4-5.4 10 ^3/uL Monocytes # (Auto) 0.4 0-1.3 10 ^3/uL Eosinophils # (Auto) 0 0-0.8 10 ^3/uL Basophils # (Auto) 0.1 0-0.2 10 ^3/uL Nucleated Red Blood Cells 0.0 % Prothrombin Time 10.4 9.3-11.8 sec Prothrombin Time INR 0.98 0.9-1.15 Activated Partial Thromboplast Time 24.7 24.5-34.5 SEC Sodium Level 141 136-145 mmol/L Potassium Level 3.6 3.5-5.1 mmol/L Chloride Level 105 98-107 mmol/L Carbon Dioxide Level 27 20-31 mmol/L Anion Gap 9 5-15 Blood Urea Nitrogen 14 9-23 mg/dL Creatinine 0.74 0.550-1.02 mg/dL Glomerular Filtration Rate Calc 85 >90 mL/min BUN/Creatinine Ratio 18.9 10.0-20.0 Serum Glucose 125 H 74-106 mg/dL Lactic Acid Level 1.4 0.4-2.0 mmol/L Calcium Level 9.3 8.7-10.4 mg/dL Total Bilirubin 1.0 0.2-1.0 mg/dL Aspartate Amino Transferase (AST) 22 13-40 U/L Alanine Aminotransferase (ALT) 19 7-40 U/L Alkaline Phosphatase 57 46-116 U/L Total Protein 6.6 5.7-8.2 g/dL Albumin 4.6 3.2-4.8 g/dL Lipase 71 H 12-53 U/L PATIENT: CARLOS YUSUF ACCT: [id number] UNIT: [id number] : 1950 LOC: ER ROOM / BED: / AGE / SEX: 74 / F ADM STATUS: REG ER SERVICE 626 ORDERING PHYSICIAN: CHINA BOWSER MD PROCEDURE(s): ABPLIV - CT AB PEL WITH IV CON ONLY REASON: abd pain, N/V ORDER NUMBER(s): [id number], ACCESSION NUMBER(s): [id number] Exam: CT CT AB PEL WITH IV CON ONLY History: abd pain, N/V Comparison Study: None TECHNIQUE: Multidetector CT of the abdomen pelvis with IV contrast. Axial, coronal and sagittal multiplanar reformats were obtained from the axial data set by the technologist. Radiation Dose Information: CT Dose: CTDI volume is 20.89 mGy. Dose-length product is 1296.74 mGy*cm FINDINGS: Bibasilar atelectasis. Partially visualized heart is unremarkable. Liver, spleen, pancreas and left adrenal gland are unremarkable. 3.7 x 2.6 cm right adrenal nodule. The gallbladder is decompressed. 1.2 cm right renal upper pole hypodense lesion with does not measure simple fluid. Subcentimeter hypodense left renal lesion that is too small to ry acterize. Otherwise, kidneys, ureters and urinary bladder unremarkable. Status post hysterectomy. Mild gastric wall thickening. Mild wall thickening of proximal small bowel loops. The remainder of the small bowel loops are fluid-filled and nondistended. Appendix is unremarkable. Mild wall thickening of the ascending colon. Sigmoid diverticulosis without diverticulitis. No evidence of intraperitoneal free air or free fluid. No evidence of aortic aneurysm or dissection. Mild atherosclerotic calcification of the aorta and bilateral iliacs. No significant lymphadenopathy. Tiny fat containing umbilical hernia. No destructive osseous lesions noted. Multilevel [id number] degenerative changes of the thoracic and lumbar spine. Vsai-or-wdotjzkj loss of vertebral body height of L5 of unknown chronicity. Sclerotic focus of the left posterior S3 which may represent a bone island with a blastic lesion not excluded. IMPRESSION: Mild wall thickening of the ascending colon. Correlate for mild colitis. Mild wall thickening of the stomach and proximal small bowel loops which may be due to inadequate distention/gastroenteritis. 3.7 x 2.6 cm right adrenal mass. 1.2 cm right renal upper pole parapelvic hypodense lesion with additional subcentimeter hypodense left renal lesions that are too small to characterize. Renal ultrasound is recommended for further evaluation. Additional findings as above. ORDERING PHYSICIAN: CHINA BOWSER MD PROCEDURE(s): CXRP - CHEST PORTABLE REASON: SOB ORDER NUMBER(s): [id number], ACCESSION NUMBER(s): [id number] CHEST RADIOGRAPH Indication: SOB Technique: Single frontal view of the chest was obtained Comparison: CHEST PORTABLE on DOS: 05/10/22, CXRP on DOS: 05/10/22, CHEST PORTABLE on DOS: 07/19/21 FINDINGS: Lines and Tubes: None Lungs: No focal consolidation. Diffuse interstitial prominence. Mild elevation of the right hemidiaphragm. Pleura: No effusion. No pneumothorax. Cardiomediastinal contours: Unremarkable Bones: No acute osseous abnormality. IMPRESSION: Mild pulmonary vascular congestion. Assessment/Plan Assessment/Plan Gastrointestinal bleed Intractable nausea and vomiting Dehydration Adrenal mass Right renal mass Gastroenteritis Leukocytosis, unspecified Generalized weakness Plan 1. Admit to telemetry unit 2. Breathing treatment 3. Pain control management 4. IV antibiotic management 5. Management of fluids and electrolytes 6. Consultation for GI/hospitalist 7. Diagnostic test abdomen/pelvis CT 8. DVT prophylaxis-on SCDs 9. Repeat labs CBC, CMP in a.m. 10. Home medication reviewed and reconciled 11. Continue with current medical management 12. Treatment plan discussed with patient and RN. Patient verbalized understanding. Plan discussed with: Patient, Other (RN) My Orders Orders - LISA GUERRERO DNP Procedure Category Date Status Time Complete Blood Count LAB 02/20/25 Logged 04:00 Comprehensive LAB 02/20/25 Logged Metabolic Panel 04:00 Ceftriaxone 1gm/50ml PHA 02/20/25 In Process D5w (Rocephin) 09:00 Ceftriaxone 1gm/50ml PHA 02/20/25 In Process D5w (Rocephin) 01:45 Pantoprazole PHA 02/20/25 In Process (Protonix) 10:00 Metoprolol Tartrate PHA 02/20/25 In Process Tablet (Lopressor Ta 10:00 Allergies LILIA 02/20/25 In Process 01:31 Code Status CODE 02/20/25 Transmitted 01:31 Sodium Chloride Lock PHA 02/20/25 In Process (Saline Lock Ns) 06:00 Oxygen Per Hour RT 02/20/25 Transmitted 01:31 Hydrocodone-Acet PHA 02/20/25 In Process 5/325mg Tab ([place] 01:45 Ondansetron Hcl PHA 02/20/25 In Process (Zofran) 01:45 Docusate Sodium PHA 02/20/25 In Process Capsule (Colace 01:45 Complete Blood Count LAB 02/21/25 Verified 04:00 Comprehensive LAB 02/21/25 Verified Metabolic Panel 04:00 Condition: Serious LILIA 02/20/25 In Process 01:31 Acetaminophen Tablet PHA 02/20/25 In Process (Tylenol Tablet) 01:45 Clear Liq Diet DIET 02/20/25 Transmitted Breakfast Bedrest With Bathroom LILIA 02/20/25 In Process Privileg 01:31 Sequential LILIA 02/20/25 In Process Compression Device Metronidazole PHA 02/20/25 In Process 500mg/100ml (Flagyl 06:00 Metronidazole PHA 02/20/25 In Process 500mg/100ml (Flagyl 01:45 Admit ADMIT 02/20/25 Verified 01:58 Nitroglycerin PHA 02/20/25 Verified Sublingual (Ntrostat 02:00 Morphine Sulfate PHA 02/20/25 Verified Injection 02:00 Stat Ekg For Chest LILIA 02/20/25 Verified Pain 01:58 Notify Of Changes LILIA 02/20/25 Verified From Base 01:58 Sql Server Dba Developer For LILIA 02/20/25 Verified 24 Hours 01:58 Emergency Dysrhythmia LILIA 02/20/25 Verified Protocol 01:58 Rhythm Strips Once LILIA 02/20/25 Verified Every Shift 01:58 Oxygen By Nasal RT 02/20/25 Verified Cannula 01:58 Problem List: (1) Gastrointestinal bleed (2) Gastroenteritis (3) Dehydration (4) Intractable nausea and vomiting (5) Right renal mass (6) Adrenal mass (7) Leukocytosis, unspecified (8) Generalized weakness Date of Service: February 20, 2025 Billing Provider: LISA GUERRERO DNP Common Visit Codes: [id number] INP/OBS CARE (HIGH) LISA GUERRERO DNP February 20, 2025 01:59
[2025-02-20] MEDS ORDERED: MORPHINE SULFATE INJ 2 MG/ml SYRG IV PRN (02:00)
[2025-02-20] MEDS ORDERED: NITROGLYCERIN 0.4 MG SL TAB SL PRN (02:00)
[2025-02-20 04:01] VITALS: BP 126/57; PULSE 69; RESP 18; TEMP 97.9; O2SAT 98
[2025-02-20] MEDS: PANTOPRAZOLE 40 MG/10 ML VIAL INJ IV ONE (04:07)
[2025-02-20] MEDS: cefTRIAXone 1GM/50ML D5W 50 ML IV ONE (04:08)
[2025-02-20] MEDS ORDERED: ATEN50TA PO (04:19)
[2025-02-20] MEDS ORDERED: ATEN25TA PO (04:19)
[2025-02-20] MEDS ORDERED: MAGN241.6 PO (04:19)
[2025-02-20] MEDS ORDERED: TRAM50TA2 PO (04:19)
[2025-02-20] MEDS ORDERED: PANT40TA57 PO (04:19)
[2025-02-20] MEDS ORDERED: MELO15TA29 PO (04:19)
[2025-02-20 04:48] LABS: Urine Bacteria FEW /hpf (None Seen); Urine Blood 2+ /uL (Negative); Urine Clarity Clear (Clear); Urine Color Yellow (Yellow); Urine Mucus FEW (None Seen); Urine Protein, UAD 1+ (Negative); Urine Specific Gravity > 1.035 (1.001-1.035); Urine Squamous Epithelial Cell FEW /hpf (<5); Urine Urobilinogen Normal (Negative); Urine WBC 9 /HPF (0-5)
[2025-02-20] MEDS: metroNIDAZOLE 500MG/100ML 100 ML IV SCH (05:29)
[2025-02-20] MEDS: SODIUM CHLOR 0.9% PF (SALINE LOCK) 10ML VIAL/SYR IV SCH (05:29)
[2025-02-20 06:25] LABS: Basophils # (auto) 0 10 ^3/uL (0-0.2); Basophils % (auto) 0.2 % (0.0-2.0); Eosinophils # (auto) 0 10 ^3/uL (0-0.8); Eosinophils % (auto) 0.1 % (0.0-7.0); Hematocrit 40.7 % (36.0-46.0); Hemoglobin 13.6 g/dL (12.2-16.2); Lymphocytes # (auto) 3.1 10 ^3/uL (0.4-5.4); Lymphocytes % (auto) 29.4 % (10.0-50.0); Mean Corpuscular Hemoglobin 30.9 pg (28.0-32.0); Mean Corpuscular Hgb Conc. 33.5 g/dL (32.0-36.0); Mean Corpuscular Volume 92.3 fL (80.0-100.0); Monocytes # (auto) 0.8 10 ^3/uL (0-1.3); Monocytes % (auto) 7.6 % (0.0-12.0); Neutrophils # (auto) 6.6 10 ^3/uL (1.6-8.6); Neutrophils % (auto) 62.7 % (37.0-80.0); Nucleated Red Blood Cells % 0.2 %; Platelet Count (auto) 189 10^3/uL (140-450); Red Blood Cells 4.41 10^6/uL (4.0-5.20); Red Cell Distribution Width 13.9 % (11.8-14.3); White Blood Cell 10.5 10^3/uL (4.4-10.8)
[2025-02-20 06:39] LABS: Alanine Aminotransferase 17 U/L (7-40); Alkaline Phosphatase 45 U/L (46-116); Anion Gap 9 (5-15); Aspartate Aminotransferase 20 U/L (13-40); Bilirubin, Total 0.8 mg/dL (0.2-1.0); Blood Urea Nitrogen 12 mg/dL (9-23); Calcium 9.6 mg/dL (8.7-10.4); Carbon Dioxide 26 mmol/L (20-31); Chloride 106 mmol/L (98-107); Glucose 109 mg/dL (74-106); Potassium 3.9 mmol/L (3.5-5.1); Sodium 141 mmol/L (136-145); Total Protein 5.7 g/dL (5.7-8.2)
[2025-02-20 08:33] VITALS: BP 125/42; PULSE 67; RESP 12; TEMP 97.7; O2SAT 98
[2025-02-20] MEDS: METOPROLOL TARTRATE 25 MG TAB PO SCH (08:58)
[2025-02-20] MEDS: cefTRIAXone 1GM/50ML D5W 50 ML IV SCH (08:58)
[2025-02-20] MEDS: PANTOPRAZOLE 40 MG/10 ML VIAL INJ IV SCH (09:03)
[2025-02-20 15:37] VITALS: BP 130/71; PULSE 59; RESP 16; TEMP 96.6; O2SAT 98
[2025-02-20 16:48] VITALS: BP 130/63; PULSE 60; RESP 16; TEMP 97.1; O2SAT 97
[2025-02-20 20:00] VITALS: PULSE 72; PULSE 81; RESP 20; O2SAT 98
[2025-02-20 21:00] VITALS: BP 129/80; PULSE 88; RESP 17; TEMP 97.8; O2SAT 99
[2025-02-20] MEDS: HYDROcodone-ACET 5/325MG TAB PO PRN (22:10)
[2025-02-21] VITALS (8 sets, daily range): BP systolic 114–143; BP diastolic 52–71; PULSE 59–69; RESP 15–20; TEMP 97.3–98.4; O2SAT 94–99
[2025-02-21 07:01] LABS: Basophils # (auto) 0 10 ^3/uL (0-0.2); Basophils % (auto) 0.5 % (0.0-2.0); Eosinophils # (auto) 0.1 10 ^3/uL (0-0.8); Hematocrit 36.7 % (36.0-46.0); Hemoglobin 12.4 g/dL (12.2-16.2); Lymphocytes # (auto) 3.2 10 ^3/uL (0.4-5.4); Lymphocytes % (auto) 51.7 % (10.0-50.0); Mean Corpuscular Hemoglobin 31.4 pg (28.0-32.0); Mean Corpuscular Hgb Conc. 33.9 g/dL (32.0-36.0); Mean Corpuscular Volume 92.5 fL (80.0-100.0); Neutrophils # (auto) 1.9 10 ^3/uL (1.6-8.6); Neutrophils % (auto) 30.8 % (37.0-80.0); Nucleated Red Blood Cells % 0.4 %; Platelet Count (auto) 164 10^3/uL (140-450); Red Blood Cells 3.97 10^6/uL (4.0-5.20); White Blood Cell 6.2 10^3/uL (4.4-10.8)
[2025-02-21 07:12] LABS: Alanine Aminotransferase 17 U/L (7-40); Albumin 3.5 g/dL (3.2-4.8); Anion Gap 9 (5-15); Aspartate Aminotransferase 19 U/L (13-40); BUN/Creatinine Ratio 13.8 (10.0-20.0); Bilirubin, Total 0.6 mg/dL (0.2-1.0); Calcium 9.3 mg/dL (8.7-10.4); Carbon Dioxide 26 mmol/L (20-31); Glucose 89 mg/dL (74-106); Sodium 143 mmol/L (136-145)
[2025-02-21 07:21] LABS: Alkaline Phosphatase 38 U/L (46-116); Blood Urea Nitrogen 9 mg/dL (9-23); Chloride 108 mmol/L (98-107); Potassium 3.5 mmol/L (3.5-5.1)
--- NOTE | 2025-02-21 13:57 | DVHPN2 ---
Subjective The patient seen and examined at bedside. No complains. Reviewed: Care Plan, H&P, Labs, Medications, Previous Orders, Radiology Changes from previous H/P or p: No Changes Eyes: No Pain, No Vision change, No Conjunctivae inflammation, No Eyelid inflammation, No Other, No Redness ENT: No Ear pain, No Ear discharge, No Nose pain, No Nose discharge, No Nose congestion, No Mouth pain, No Mouth swelling, No Throat pain, No Throat swelling, No Other Cardiovascular: No Chest Pain, No Palpitations, No Orthopnea, No Paroxysmal Noc. Dyspnea, No Edema, No Lt Headedness, No Other Respiratory: No Cough, No Dry, No Shortness of breath, No SOB with excertion, No Wheezing, No Hemoptysis, No Pleuritic Pain, No Sputum, No Other Gastrointestinal: Nausea, Vomiting, Abdominal Pain, Diarrhea; No Constipation, No Melena, No Hematochezia, No Other Genitourinary: No Dysuria, No Frequency, No Incontinence, No Hematuria, No Retention, No Other Musculoskeletal: No other, No neck pain, No shoulder pain, No arm pain, No back pain, No hand pain, No leg pain, No foot pain Skin: No Rash, No Lesions, No Jaundice, No Bruising, No Other Objective Vitals Vital Signs Date Time Temp Pulse Resp B/P (MAP) Pulse Ox O2 Delivery O2 Flow Rate FiO2 02/21/25 13:00 97.7 59 16 132/71 (91) 95 97.7 02/21/25 08:00 Room Air* 0 21 Intake/Output Intake and Output 02/21/25 07:00 Intake Total 1050 ml Balance 1050 ml Intake Oral 800 ml IV Total 250 ml # Voids 4 General Appearance: Alert, Oriented X3, Cooperative, No acute distress HEENT: Atraumatic, PERRLA, EOMI, Mucous membr. moist/pink Neck: Supple Lungs: Clear to auscultation, Normal air movement Cardiovascular: Regular rate, Normal S1, Normal S2, No murmurs, Gallops, Rubs Abdomen: Normal bowel sounds, Soft, No tenderness Neuro: Cranial nerves 3-12 NL Psych/Mental Status: Mental status NL Medications Current Medications Medications Dose Ordered Sig/Jeanette Route Start Time Stop Time Status Last Admin Dose Admin Ceftriaxone Sodium 50 ml @ 100 mls/hr DAILY@09 IV 02/20/25 09:00 02/21/25 08:41 100 MLS/HR Pantoprazole Sodium 40 mg DAILY IV 02/20/25 10:00 02/21/25 08:41 40 MG Metoprolol Tartrate 25 mg BID PO 02/20/25 10:00 02/21/25 08:41 25 MG Sodium Chloride 10 ml Q8HR IV 02/20/25 06:00 02/21/25 05:00 10 ML Acetaminophen/ Hydrocodone Bitart 1 tab Q4HP PRN PO 02/20/25 01:45 02/20/25 22:10 1 TAB Ondansetron HCl 4 mg Q4HP PRN IV 02/20/25 01:45 Docusate Sodium 100 mg BIDPRN PRN PO 02/20/25 01:45 Acetaminophen 650 mg Q6HP PRN PO 02/20/25 01:45 Metronidazole 100 ml @ 100 mls/hr Q8HR IV 02/20/25 06:00 02/21/25 12:48 100 MLS/HR Nitroglycerin 0.4 mg Q5MINP PRN SL 02/20/25 02:00 Morphine Sulfate 2 mg Q30M PRN IV 02/20/25 02:00 Laboratory Results Laboratory Tests 02/21/25 05:55 Chemistry Test 02/21/25 05:55 Albumin 3.5 g/dL (3.2-4.8) Calcium Level 9.3 mg/dL (8.7-10.4) Total Protein 5.0 g/dL (5.7-8.2) L LFT Test 02/21/25 05:55 Alanine Aminotransferase (ALT) 17 U/L (7-40) Alkaline Phosphatase 38 U/L (46-116) L Aspartate Amino Transferase (AST) 19 U/L (13-40) Total Bilirubin 0.6 mg/dL (0.2-1.0) Urinalysis Test 02/19/25 23:59 Urine Color Yellow (Yellow) Urine Clarity Clear (Clear) Urine pH 6.0 (5.0-9.0) Urine Specific [place] > 1.035 (1.001-1.035) Urine Protein 1+ (Negative) H Urine Ketones Trace (Negative) Urine Blood 2+ /uL (Negative) H Urine Nitrite Negative (Negative) Urine Bilirubin Negative (Negative) Urine Urobilinogen Normal mg/dL (Negative) Urine Leukocyte Esterase Negative /uL (Negative) Urine RBC 87 /hpf (0 - 4) Urine Microscopic WBC 9 /HPF (0-5) H Urine Squamous Epithelial Cells Few /hpf (<5) Urine Transitional Epithelial Cells Few /hpf (<2) Urine Bacteria Few /hpf (None Seen) H Urine Mucus Few (None Seen) Urine Glucose Normal mg/dL (Normal) Microbiology Microbiology Date/Time Source Procedure Growth Status 02/19/25 19:02 Blood Blood Culture - Preliminary NO GROWTH AFTER 24 HOURS OF INCUBATION. Resulted Labs and/or images reviewed: Labs reviewed by me Assessment/Plan Assessment/Plan Gastrointestinal bleed Intractable nausea and vomiting Dehydration Adrenal mass Right renal mass Gastroenteritis Leukocytosis, unspecified Generalized weakness Plan Continuing current management Continuing with IV antibiotic We will order an ultrasound of kidney to further study regarding to a right renal mass GI consult Continuing IV fluid Zofran as needed for nausea and vomiting This medical document was created using an electronic medical record system with M*M [id number] direct computerized dictation system. Although this document has been carefully reviewed, there may still be some phonetic and typographical errors. These areas are purely typographical due to imperfections of the software programs, and do not reflect any compromise in the patient's medical care. Plan discussed with: Patient Date of Service: February 21, 2025 Billing Provider: ROMA GARCIA MD Common Visit Codes: [id number] INP/OBS CARE(HIGH) ROMA GARCIA MD February 21, 2025 13:57
--- NOTE | 2025-02-21 21:14 | DVHINCON2 ---
Date of service: February 21, 2025 Referring Physician Elijah White Reason for Consultation N/V History of Present Illness 74 year old Burkinan speaking Female with a prior Hx of Leukemia, HTN, and Asthma admitted via ED due to the c/c of N/V/D. Pt states that she has been experiencing N/V all day and has not been able to keep anything down "not even water". Pt notes that her Emesis is Yellow in color, and her /D is Black and Bloody. Pt also notes of a 9/10 MEJIA with no alleviating factors at this point in time. Pt denies any CP, Back Pain, Patient/ reports symptoms progressively get worse with nausea, vomiting, headache, rating 9/10 numeric scale, getting worse that prompted this visit. Abdomen/pelvis CT revealing mild wall thickening of the ascending colon correlate for mild colitis; mild wall thickening of the stomach and proximal small bowel loops which may be due to inadequate distention/gastroenteritis, 3.7 x 2.6 cm right adrenal mass, 1.2 cm right renal upper pole parapelvic hydro dense lesion with additional subcentimeter hypodense left renal lesion that too small to characterize. Patient was started on IV antibiotic regimen Flagyl Past Medical History Past Medical History Asthma, HTN, Leukemia Past Surgical History Past Surgical History Hysterectomy Family History: Cardiovascular disease G8 MOTHER G8 FATHER Hypertension G8 MOTHER Allergies: Coded Allergies: NO KNOWN ALLERGIES (Unverified , 11/23/12) Home Meds Reported Medications Pantoprazole Sodium Sesquihydr (Pantoprazole Sodium Dr) 40 Mg Tab, 1 TAB PO DAILY 02/20/25 Meloxicam (Meloxicam) 15 Mg Tab, 1 TAB PO DAILY 02/20/25 Tramadol Hcl (Tramadol Hcl) 50 Mg Tab, 1 TAB PO BIDPRN PRN for PAIN SCALE 7 THRU 10 02/20/25 Magnesium Oxide (mg Supplement (Magnesium-Oxide) 400 Mg Tab, 1 TAB PO DAILY 02/20/25 Atenolol (Atenolol) 25 Mg Tab, 1 TAB PO QAM 02/20/25 Atenolol (Atenolol) 50 Mg Tab, 1 TAB PO QPM 02/20/25 Patients Own Medication (PATIENTS OWN MEDICATION) ., 3 CAP PO DAILY PTS OWN MED DRUG: IMBRUVICA 140 MG CAP FREQ: 3 CAPS PO DAILY RX# EXP: DATE DISP: TECH: RPH: 11/01/20 Vital Signs Vital Signs Date Time Temp Pulse Resp B/P (MAP) Pulse Ox O2 Delivery O2 Flow Rate FiO2 02/21/25 20:45 98.0 62 16 121/67 (85) 95 98.0 02/21/25 08:00 Room Air* 0 21 Physical Exam General Appearance: Alert, Oriented X3, Cooperative, No acute distress HEENT: Atraumatic, PERRLA, EOMI, Mucous membr. moist/pink Respiratory: Normal air movement, Other (Pulmonary congestion) Cardiovascular: Regular rate, Normal S1, Normal S2, No murmurs Abdominal: Normal bowel sounds, Soft, No tenderness, No hepatospenomegaly, No masses Extremities: No clubbing, No cyanosis, No edema, Normal pulses, No tenderness/swelling Skin: No rashes, No breakdown, No significant lesion Neuro: Normal speech, Normal tone, Sensation intact, Psych/Mental Status: Mental status NL, Mood NL Labs/Diagnostic Data Labs Test 02/21/25 05:55 02/20/25 11:17 02/19/25 23:59 02/19/25 19:02 Range/Units White Blood Count 6.2 # 4.4-10.8 10^3/uL Red Blood Count 3.97 L 4.0-5.20 10^6/uL Hemoglobin 12.4 12.2-16.2 g/dL Hematocrit 36.7 36.0-46.0 % Mean Corpuscular Volume 92.5 80.0-100.0 fL Mean Corpuscular Hemoglobin 31.4 28.0-32.0 pg Mean Corpuscular Hemoglobin Concent 33.9 32.0-36.0 g/dL Red Cell Distribution Width 14.0 11.8-14.3 % Platelet Count 164 140-450 10^3/uL Mean Platelet Volume 8.9 6.9-10.8 fL Neutrophils (%) (Auto) 30.8 L 37.0-80.0 % Lymphocytes (%) (Auto) 51.7 H 10.0-50.0 % Monocytes (%) (Auto) 16.0 H 0.0-12.0 % Eosinophils (%) (Auto) 1.0 0.0-7.0 % Basophils (%) (Auto) 0.5 0.0-2.0 % Neutrophils # (Auto) 1.9 1.6-8.6 10 ^3/uL Lymphocytes # (Auto) 3.2 0.4-5.4 10 ^3/uL Monocytes # (Auto) 1.0 0-1.3 10 ^3/uL Eosinophils # (Auto) 0.1 0-0.8 10 ^3/uL Basophils # (Auto) 0 0-0.2 10 ^3/uL Nucleated Red Blood Cells 0.4 % Sodium Level 143 136-145 mmol/L Potassium Level 3.5 3.5-5.1 mmol/L Chloride Level 108 H 98-107 mmol/L Carbon Dioxide Level 26 20-31 mmol/L Anion Gap 9 5-15 Blood Urea Nitrogen 9 9-23 mg/dL Creatinine 0.65 0.550-1.02 mg/dL Glomerular Filtration Rate Calc 92 >90 mL/min BUN/Creatinine Ratio 13.8 10.0-20.0 Serum Glucose 89 74-106 mg/dL Calcium Level 9.3 8.7-10.4 mg/dL Total Bilirubin 0.6 0.2-1.0 mg/dL Aspartate Amino Transferase (AST) 19 13-40 U/L Alanine Aminotransferase (ALT) 17 7-40 U/L Alkaline Phosphatase 38 L 46-116 U/L Total Protein 5.0 L 5.7-8.2 g/dL Albumin 3.5 3.2-4.8 g/dL POC Glucose 91 70-106 mg/dl Urine Color Yellow Yellow Urine Clarity Clear Clear Urine pH 6.0 5.0-9.0 Urine Specific [place] > 1.035 H 1.001-1.035 Urine Protein 1+ H Negative Urine Ketones Trace Negative Urine Blood 2+ H Negative /uL Urine Nitrite Negative Negative Urine Bilirubin Negative Negative Urine Urobilinogen Normal Negative mg/dL Urine Leukocyte Esterase Negative Negative /uL Urine RBC 87 0 - 4 /hpf Urine Microscopic WBC 9 H 0-5 /HPF Urine Squamous Epithelial Cells Few <5 /hpf Urine Transitional Epithelial Cells Few <2 /hpf Urine Bacteria Few H None Seen /hpf Urine Mucus Few None Seen Urine Glucose Normal Normal mg/dL Prothrombin Time 10.4 9.3-11.8 sec Prothrombin Time INR 0.98 0.9-1.15 Activated Partial Thromboplast Time 24.7 24.5-34.5 SEC Lactic Acid Level 1.4 0.4-2.0 mmol/L Lipase 71 H 12-53 U/L Microbiology Date/Time Source Procedure Growth Status 02/19/25 19:02 Blood Blood Culture - Preliminary NO GROWTH AFTER 48 HOURS OF INCUBATION. Resulted CXR IMPRESSION: Mild pulmonary vascular congestion. Problems(with codes): (1) Viral gastroenteritis (2) Leukocytosis, unspecified (3) Generalized weakness (4) Intractable nausea and vomiting (5) Right renal mass (6) Adrenal mass (7) Dehydration (8) Lightheadedness Plan/Recommendation Assessment plan Suspect viral gastroenteritis with prodrome of headache weakness generalized body aches ,nausea vomiting and nonspecific findings on CT scan ; mild pa ncreatitis Continue to monitor labs, IV fluid hydration IV antibiotics Protonix 40 mg IV daily Carafate and Zofran I will be standing by to discuss possible endoscopy and elective colonoscopy once medically stabilized Once again thank you for allowing me to participate in the care of this patient I will follow up patient with you Plan discussed with: Other (None) BROOK LOGAN MD February 21, 2025 21:14
[2025-02-22] VITALS (8 sets, daily range): BP systolic 121–150; BP diastolic 63–80; PULSE 57–83; RESP 15–20; TEMP 97–98.4; O2SAT 95–97
--- NOTE | 2025-02-22 08:40 | DVH ---
INDICATION: Renal mass TECHNIQUE: Multiple real-time sonographic images of the kidneys and bladder were obtained. COMPARISON: None FINDINGS: The right kidney measures 9.6 cm in length, which is normal in size. There is normal echoge nicity of the right kidney. No hydronephrosis. There is a suprarenal mass measuring 3.4 cm as seen on prior CT. Right renal cyst measuring 1.2 cm The left kidney measures 9.3 cm in length, which is normal in size. There is normal echogenicity of t he left kidney. No hydronephrosis. No large intraluminal masses are seen in the bladder. Prior to voiding the bladder volume measures vo lume 251 cc. Following voiding, the bladder volume residual measures 0 cc. IMPRESSION: 1. Right renal cyst measuring 1.2 cm. A suprarenal mass measuring 3.4 cm as seen on prior CT suggesti ve of a adrenal mass. No hydronephrosis.
[2025-02-22 08:52] LABS: Basophils # (auto) 0 10 ^3/uL (0-0.2); Basophils % (auto) 0.7 % (0.0-2.0); Eosinophils # (auto) 0.1 10 ^3/uL (0-0.8); Eosinophils % (auto) 1.2 % (0.0-7.0); Hematocrit 39.4 % (36.0-46.0); Hemoglobin 13.2 g/dL (12.2-16.2); Lymphocytes # (auto) 3.1 10 ^3/uL (0.4-5.4); Lymphocytes % (auto) 46.5 % (10.0-50.0); Mean Corpuscular Hemoglobin 31.2 pg (28.0-32.0); Mean Corpuscular Hgb Conc. 33.6 g/dL (32.0-36.0); Mean Corpuscular Volume 92.7 fL (80.0-100.0); Monocytes # (auto) 0.8 10 ^3/uL (0-1.3); Monocytes % (auto) 12.5 % (0.0-12.0); Neutrophils # (auto) 2.6 10 ^3/uL (1.6-8.6); Neutrophils % (auto) 39.1 % (37.0-80.0); Nucleated Red Blood Cells % 0.1 %; Platelet Count (auto) 182 10^3/uL (140-450); Red Blood Cells 4.25 10^6/uL (4.0-5.20); White Blood Cell 6.7 10^3/uL (4.4-10.8)
--- NOTE | 2025-02-22 11:57 | DVHPN2 ---
Subjective The patient seen and examined at bedside. No complains. Reviewed: Care Plan, H&P, Labs, Medications, Previous Orders, Radiology Changes from previous H/P or p: No Changes Eyes: No Pain, No Vision change, No Conjunctivae inflammation, No Eyelid inflammation, No Other, No Redness ENT: No Ear pain, No Ear discharge, No Nose pain, No Nose discharge, No Nose congestion, No Mouth pain, No Mouth swelling, No Throat pain, No Throat swelling, No Other Cardiovascular: No Chest Pain, No Palpitations, No Orthopnea, No Paroxysmal Noc. Dyspnea, No Edema, No Lt Headedness, No Other Respiratory: No Cough, No Dry, No Shortness of breath, No SOB with excertion, No Wheezing, No Hemoptysis, No Pleuritic Pain, No Sputum, No Other Gastrointestinal: Nausea, Vomiting, Abdominal Pain, Diarrhea; No Constipation, No Melena, No Hematochezia, No Other Genitourinary: No Dysuria, No Frequency, No Incontinence, No Hematuria, No Retention, No Other Musculoskeletal: No other, No neck pain, No shoulder pain, No arm pain, No back pain, No hand pain, No leg pain, No foot pain Skin: No Rash, No Lesions, No Jaundice, No Bruising, No Other Objective Vitals Vital Signs Date Time Temp Pulse Resp B/P (MAP) Pulse Ox O2 Delivery O2 Flow Rate FiO2 02/22/25 09:07 83 146/74 02/22/25 09:00 97.0 17 95 97.0 02/22/25 08:00 Room Air* 0 21 Intake/Output Intake and Output 02/22/25 07:00 Intake Total 1950 ml Balance 1950 ml Intake Oral 1600 ml IV Total 350 ml # Voids 3 General Appearance: Alert, Oriented X3, Cooperative, No acute distress HEENT: Atraumatic, PERRLA, EOMI, Mucous membr. moist/pink Neck: Supple Lungs: Clear to auscultation, Normal air movement Cardiovascular: Regular rate, Normal S1, Normal S2, No murmurs, Gallops, Rubs Abdomen: Normal bowel sounds, Soft, No tenderness Neuro: Cranial nerves 3-12 NL Psych/Mental Status: Mental status NL Medications Current Medications Medications Dose Ordered Sig/Jeanette Route Start Time Stop Time Status Last Admin Dose Admin Ceftriaxone Sodium 50 ml @ 100 mls/hr DAILY@09 IV 02/20/25 09:00 02/22/25 09:06 100 MLS/HR Pantoprazole Sodium 40 mg DAILY IV 02/20/25 10:00 02/22/25 09:06 40 MG Metoprolol Tartrate 25 mg BID PO 02/20/25 10:00 02/22/25 09:07 25 MG Sodium Chloride 10 ml Q8HR IV 02/20/25 06:00 02/22/25 05:08 10 ML Acetaminophen/ Hydrocodone Bitart 1 tab Q4HP PRN PO 02/20/25 01:45 02/21/25 17:40 1 TAB Ondansetron HCl 4 mg Q4HP PRN IV 02/20/25 01:45 Docusate Sodium 100 mg BIDPRN PRN PO 02/20/25 01:45 Acetaminophen 650 mg Q6HP PRN PO 02/20/25 01:45 Metronidazole 100 ml @ 100 mls/hr Q8HR IV 02/20/25 06:00 02/22/25 05:14 100 MLS/HR Nitroglycerin 0.4 mg Q5MINP PRN SL 02/20/25 02:00 Morphine Sulfate 2 mg Q30M PRN IV 02/20/25 02:00 Laboratory Results Laboratory Tests 02/21/25 05:55 02/22/25 08:31 Urinalysis Test 02/19/25 23:59 Urine Color Yellow (Yellow) Urine Clarity Clear (Clear) Urine pH 6.0 (5.0-9.0) Urine Specific [place] > 1.035 (1.001-1.035) Urine Protein 1+ (Negative) H Urine Ketones Trace (Negative) Urine Blood 2+ /uL (Negative) H Urine Nitrite Negative (Negative) Urine Bilirubin Negative (Negative) Urine Urobilinogen Normal mg/dL (Negative) Urine Leukocyte Esterase Negative /uL (Negative) Urine RBC 87 /hpf (0 - 4) Urine Microscopic WBC 9 /HPF (0-5) H Urine Squamous Epithelial Cells Few /hpf (<5) Urine Transitional Epithelial Cells Few /hpf (<2) Urine Bacteria Few /hpf (None Seen) H Urine Mucus Few (None Seen) Urine Glucose Normal mg/dL (Normal) Microbiology Microbiology Date/Time Source Procedure Growth Status 02/19/25 19:02 Blood Blood Culture - Preliminary NO GROWTH AFTER 48 HOURS OF INCUBATION. Resulted Labs and/or images reviewed: Labs reviewed by me Assessment/Plan Assessment/Plan Gastrointestinal bleed Intractable nausea and vomiting Dehydration Adrenal mass 3.4 cm Right renal mass Gastroenteritis Leukocytosis, unspecified Generalized weakness Plan Continuing current management Continuing with IV antibiotic US show: renal cyst and incidental adrenal mass 3.4 cm. Advice outpatient work up GI consult Continuing IV fluid Zofran as needed for nausea and vomiting This medical document was created using an electronic medical record system with [employer] direct computerized dictation system. Although this document has been carefully reviewed, there may still be some phonetic and typographical errors. These areas are purely typographical due to imperfections of the software programs, and do not reflect any compromise in the patient's medical care. Plan discussed with: Patient My Orders Orders - ROMA GARCIA MD Procedure Category Date Status Time * [facility] CONS 02/21/25 Transmitted 14:54 Kidney US 02/22/25 Resulted 06:57 Date of Service: February 22, 2025 Billing Provider: ROMA GARCIA MD Common Visit Codes: [id number] INP/OBS CARE(HIGH) ROMA GARCIA MD February 22, 2025 11:57
[2025-02-22] MEDS: amLODIPine BESYLATE 5 MG TAB PO ONE (17:36)
--- NOTE | 2025-02-22 22:05 | DVHPN2 ---
Progress Note - Dictate Date Seen: February 22, 2025 Medical Necessity Reason Pt with a Central, PICC or Fol: No Subjective No new complaints Patient seen at bedside She is hungry and wants to eat No further episodes of nausea vomiting Nurse states she has not had any further bowel movement or no GI bleeding vital signs Vital Sign Date Time Temp Pulse Resp B/P (MAP) Pulse Ox O2 Delivery O2 Flow Rate FiO2 02/22/25 21:00 98.4 77 20 128/63 (84) 95 98.4 02/22/25 20:00 Room Air* 0 21 Total Intake and Output 02/21/25 02/21/25 02/22/25 15:00 23:00 07:00 Intake Total 150 ml 1300 ml 500 ml Balance 150 ml 1300 ml 500 ml medications Current Medications Medications Dose Ordered Sig/Jeanette Route Start Time Stop Time Status Last Admin Dose Admin Ceftriaxone Sodium 50 ml @ 100 mls/hr DAILY@09 IV 02/20/25 09:00 02/22/25 09:06 100 MLS/HR Pantoprazole Sodium 40 mg DAILY IV 02/20/25 10:00 02/22/25 09:06 40 MG Metoprolol Tartrate 25 mg BID PO 02/20/25 10:00 02/22/25 09:07 25 MG Sodium Chloride 10 ml Q8HR IV 02/20/25 06:00 02/22/25 13:30 10 ML Acetaminophen/ Hydrocodone Bitart 1 tab Q4HP PRN PO 02/20/25 01:45 02/21/25 17:40 1 TAB Ondansetron HCl 4 mg Q4HP PRN IV 02/20/25 01:45 Docusate Sodium 100 mg BIDPRN PRN PO 02/20/25 01:45 Acetaminophen 650 mg Q6HP PRN PO 02/20/25 01:45 Metronidazole 100 ml @ 100 mls/hr Q8HR IV 02/20/25 06:00 02/22/25 13:29 100 MLS/HR Nitroglycerin 0.4 mg Q5MINP PRN SL 02/20/25 02:00 Morphine Sulfate 2 mg Q30M PRN IV 02/20/25 02:00 objective General Appearance: Alert, Oriented X3, Cooperative, No acute distress HEENT: Atraumatic, PERRLA, EOMI, Mucous membr. moist/pink Respiratory: Normal air movement, Cardiovascular: Regular rate, Normal S1, Normal S2, No murmurs Abdominal: Normal bowel sounds, Soft, No tenderness, No hepatospenomegaly, No masses Extremities: No clubbing, No cyanosis, No edema, Normal pulses, No tenderness/swelling Skin: No rashes, No breakdown, No significant lesion Neuro: Normal speech, Normal tone, Sensation intact, Psych/Mental Status: Mental status NL, Mood NL laboratory and microbiology Laboratory Tests 02/22/25 08:31 02/21/25 05:55 Test 02/21/25 05:55 Range/Units Serum Glucose 89 74-106 mg/dL Problems(with codes): (1) Intractable nausea and vomiting (2) Generalized weakness (3) Viral gastroenteritis (4) Gastrointestinal bleed Prognosis Plan Patient will be given full liquid diet tonight Keep her NPO after midnight Patient will be scheduled for a tentative endoscopy on 02/23/2025 Outpatient follow up with GI Services for elective colonoscopy in the future DC NSAIDs aspirin and meloxicam Dietary Evaluation Review Comments: Offer Ensure Clear for added caloried and protein while on Clear liquid. Advance to diet when medically feasible. monitor PO itnake to meet 75% of her needs. Expected Outcomes/Goals: Recovered GI function Plan discussed with: Patient, Other (Nurse) BROOK LOGAN MD February 22, 2025 22:05
[2025-02-22] MEDS: ACETAMINOPHEN 325 MG TAB PO PRN (22:38)
[2025-02-23] VITALS (10 sets, daily range): BP systolic 118–134; BP diastolic 65–70; PULSE 66–90; RESP 14–17; TEMP 97.6–98.5; O2SAT 92–99
--- NOTE | 2025-02-23 11:26 | DVHPN2 ---
Subjective The patient seen and examined at bedside. No complains. Waiting for EGD Reviewed: Care Plan, H&P, Labs, Medications, Previous Orders, Radiology Changes from previous H/P or p: No Changes Eyes: No Pain, No Vision change, No Conjunctivae inflammation, No Eyelid inflammation, No Other, No Redness ENT: No Ear pain, No Ear discharge, No Nose pain, No Nose discharge, No Nose congestion, No Mouth pain, No Mouth swelling, No Throat pain, No Throat swelling, No Other Cardiovascular: No Chest Pain, No Palpitations, No Orthopnea, No Paroxysmal Noc. Dyspnea, No Edema, No Lt Headedness, No Other Respiratory: No Cough, No Dry, No Shortness of breath, No SOB with excertion, No Wheezing, No Hemoptysis, No Pleuritic Pain, No Sputum, No Other Gastrointestinal: Nausea, Vomiting, Abdominal Pain, Diarrhea; No Constipation, No Melena, No Hematochezia, No Other Genitourinary: No Dysuria, No Frequency, No Incontinence, No Hematuria, No Retention, No Other Musculoskeletal: No other, No neck pain, No shoulder pain, No arm pain, No back pain, No hand pain, No leg pain, No foot pain Skin: No Rash, No Lesions, No Jaundice, No Bruising, No Other Objective Vitals Vital Signs Date Time Temp Pulse Resp B/P (MAP) Pulse Ox O2 Delivery O2 Flow Rate FiO2 02/23/25 08:53 97.9 69 16 118/65 (82) 93 97.9 02/22/25 20:00 Room Air* 0 21 Intake/Output Intake and Output 02/23/25 07:00 Intake Total 1190 ml Balance 1190 ml Intake Oral 1040 ml IV Total 150 ml # Voids 4 General Appearance: Alert, Oriented X3, Cooperative, No acute distress HEENT: Atraumatic, PERRLA, EOMI, Mucous membr. moist/pink Neck: Supple Lungs: Clear to auscultation, Normal air movement Cardiovascular: Regular rate, Normal S1, Normal S2, No murmurs, Gallops, Rubs Abdomen: Normal bowel sounds, Soft, No tenderness Neuro: Cranial nerves 3-12 NL Psych/Mental Status: Mental status NL Medications Current Medications Medications Dose Ordered Sig/Jeanette Route Start Time Stop Time Status Last Admin Dose Admin Ceftriaxone Sodium 50 ml @ 100 mls/hr DAILY@09 IV 02/20/25 09:00 02/23/25 09:51 100 MLS/HR Pantoprazole Sodium 40 mg DAILY IV 02/20/25 10:00 02/23/25 09:52 40 MG Metoprolol Tartrate 25 mg BID PO 02/20/25 10:00 02/22/25 22:39 25 MG Sodium Chloride 10 ml Q8HR IV 02/20/25 06:00 02/23/25 06:06 10 ML Acetaminophen/ Hydrocodone Bitart 1 tab Q4HP PRN PO 02/20/25 01:45 02/21/25 17:40 1 TAB Ondansetron HCl 4 mg Q4HP PRN IV 02/20/25 01:45 Docusate Sodium 100 mg BIDPRN PRN PO 02/20/25 01:45 Acetaminophen 650 mg Q6HP PRN PO 02/20/25 01:45 02/22/25 22:38 650 MG Metronidazole 100 ml @ 100 mls/hr Q8HR IV 02/20/25 06:00 02/23/25 06:04 100 MLS/HR Nitroglycerin 0.4 mg Q5MINP PRN SL 02/20/25 02:00 Morphine Sulfate 2 mg Q30M PRN IV 02/20/25 02:00 Laboratory Results Laboratory Tests 02/21/25 05:55 02/22/25 08:31 Urinalysis Test 02/19/25 23:59 Urine Color Yellow (Yellow) Urine Clarity Clear (Clear) Urine pH 6.0 (5.0-9.0) Urine Specific [place] > 1.035 (1.001-1.035) Urine Protein 1+ (Negative) H Urine Ketones Trace (Negative) Urine Blood 2+ /uL (Negative) H Urine Nitrite Negative (Negative) Urine Bilirubin Negative (Negative) Urine Urobilinogen Normal mg/dL (Negative) Urine Leukocyte Esterase Negative /uL (Negative) Urine RBC 87 /hpf (0 - 4) Urine Microscopic WBC 9 /HPF (0-5) H Urine Squamous Epithelial Cells Few /hpf (<5) Urine Transitional Epithelial Cells Few /hpf (<2) Urine Bacteria Few /hpf (None Seen) H Urine Mucus Few (None Seen) Urine Glucose Normal mg/dL (Normal) Microbiology Microbiology Date/Time Source Procedure Growth Status 02/19/25 19:02 Blood Blood Culture - Preliminary NO GROWTH AFTER 72 HOURS OF INCUBATION. Resulted Labs and/or images reviewed: Labs reviewed by me Assessment/Plan Assessment/Plan Gastrointestinal bleed Intractable nausea and vomiting Dehydration Adrenal mass 3.4 cm Right renal mass Gastroenteritis Leukocytosis, unspecified Generalized weakness Plan Continuing current management Continuing with IV antibiotic US show: renal cyst and incidental adrenal mass 3.4 cm. Advice outpatient work up GI consult Continuing IV fluid Zofran as needed for nausea and vomiting Waiting for EGD today. Discussed with daughter, and the patient in length regarding to the adrenal mass. The patient and family understands she needs to have a follow up ultrasound and also a workup to remove the adrenal mass if needed. Patient will follow up with primary care physician and will get referral for outpatient management of adrenal mass. This medical document was created using an electronic medical record system with [employer] dictation system. Although this document has been carefully reviewed, there may still be some phonetic and typographical errors. These areas are purely typographical due to imperfections of the software programs, and do not reflect any compromise in the patient's medical care. This medical document was created using an electronic medical record system with [employer] dictation system. Although this document has been carefully reviewed, there may still be some phonetic and typographical errors. These areas are purely typographical due to imperfections of the software programs, and do not reflect any compromise in the patient's medical care. Plan discussed with: Patient, Spouse, Daughter Date of Service: February 23, 2025 Billing Provider: ROMA GARCIA MD Common Visit Codes: [id number] INP/OBS CARE(HIGH) ROMA GARCIA MD February 23, 2025 11:26
[2025-02-23] MEDS ORDERED: SODIUM CHLORIDE LOCK 10 ML ONE (11:34)
[2025-02-23] MEDS: LIDOCAINE VISCOUS 2% 15ML UD ONE (13:03)
[2025-02-23] MEDS: MIDAZOLAM HCL 5 MG/ML-1ML VIAL ONE (13:06)
[2025-02-23] MEDS: diphenhdrAMINE HCL 50 MG/1 ML VL ONE (13:06)
[2025-02-23] MEDS: fentaNYL CITRATE 100 MCG/2 ML VL ONE (13:06)
--- NOTE | 2025-02-23 13:19 | DVHOP2 ---
Operative Report DATE OF OPERATION: 02/23/25 PROCEDURE: Upper Endoscopy with biopsy. PREOPERATIVE INDICATION: The patient is a 74 -year-old female undergoing endoscopy for history of melena nausea vomiting and abdominal pain POSTOPERATIVE DIAGNOSES: 1. 1 cm sliding-type hiatal hernia with slightly irregular squamocolumnar junction and minimal grade a erosive esophagitis 2. Mild gastritis and duodenitis otherwise normal examination of the 2nd and 3rd part of the duodenum PROCEDURE PERFORMED BY: Brook Sanchez GI NURSE: Janet SCOPE: Olympus videoendoscope. ASA CLASS: 2. PREOPERATIVE MEDICATIONS: Versed 2 mg, Fentanyl 50 mcg, Benadryl 25 mg I administered moderate sedation throughout this _7_ minutes procedure. An independent trained observer pushed medications at my direction, and monitored the patient's level of consciousness and physiological status throughout. PROCEDURE IN DETAIL: After obtaining an informed consent, the patient was placed on left lateral decubitus position. The patient was then sedated with the above medications. A bite block was placed between her teeth. The endoscope was then passed through the oropharynx, into the esophagus, and through the stomach and pylorus up to the second and third part of the duodenum. The endoscope was then withdrawn. The 2nd and 3rd part of the duodenum were normal. Duodenal bulb showed mild duodenitis. Duodenal biopsies were obtained. The pre-pyloric area antrum and body showed mild gastritis with some hyperemia and edema and a couple superficial erosions. Gastric biopsies were obtained On retroflexed in the fundus cardia and angularis were normal. The endoscope was then withdrawn into distal esophagus Patient had a 1 cm sliding-type hiatal hernia with slightly irregular squamocolumnar junction minimal grade a erosive esophagitis. GE junction biopsies were obtained The remaining distal and proximal esophagus and oropharynx were unremarkable The patient tolerated the procedure well without difficulty. COMPLICATIONS : None SPECIMENS: Duodenal biopsies Gastric biopsies GE junction biopsies DISPOSITION: Transfer back to the floor Stable PLAN: 1. Await for biopsy result 2. Will place pt on Protonix 40 mg p.o. daily 3. Resume GI soft diet advance as tolerated 4. Outpatient follow-up with me in 4-6 weeks to review results and discuss scheduling outpatient elective screening colonoscopy BROOK SANCHEZ MD February 23, 2025 13:19
--- NOTE | 2025-02-23 14:50 | MEDREC ---
[facility] Intervention Section I [facility] Intervention: Review courses of therapy (PLEASE CONSIDER D/C ANTIBIOTIC IN ABSENCE OF BACTERIAL INFECTION) JOHN BROWN PHARMACIST February 23, 2025 14:50
[2025-02-23] MEDS: ONDANSETRON HCL 4 MG/2 ML VIAL IV PRN (21:37)
[2025-02-24 05:00] VITALS: BP 122/63; PULSE 62; RESP 18; TEMP 97.3; O2SAT 96
[2025-02-24 08:00] VITALS: PULSE 61; PULSE 64; RESP 18; O2SAT 96
[2025-02-24 09:00] VITALS: BP 134/74; PULSE 61; RESP 18; TEMP 98.2; O2SAT 96
[2025-02-24] MEDS ORDERED: PANT40TA2 PO (12:06)
--- NOTE | 2025-02-24 12:10 | DVHDS2 ---
Discharge Summary Date of Admission February 20, 2025 at 01:58 Date of Discharge: February 24, 2025 Admitting Diagnosis Gastrointestinal bleed Intractable nausea and vomiting Dehydration Adrenal mass Right renal mass Gastroenteritis Leukocytosis, unspecified Generalized weakness Labs/Diagnostic Data: Laboratory Results Test 02/22/25 08:31 02/21/25 05:55 02/20/25 11:17 02/19/25 23:59 White Blood Count 6.7 10^3/uL (4.4-10.8) Red Blood Count 4.25 10^6/uL (4.0-5.20) Hemoglobin 13.2 g/dL (12.2-16.2) Hematocrit 39.4 % (36.0-46.0) Mean Corpuscular Volume 92.7 fL (80.0-100.0) Mean Corpuscular Hemoglobin 31.2 pg (28.0-32.0) Mean Corpuscular Hemoglobin Concent 33.6 g/dL (32.0-36.0) Red Cell Distribution Width 14.0 % (11.8-14.3) Platelet Count 182 10^3/uL (140-450) Mean Platelet Volume 8.2 fL (6.9-10.8) Neutrophils (%) (Auto) 39.1 % (37.0-80.0) Lymphocytes (%) (Auto) 46.5 % (10.0-50.0) Monocytes (%) (Auto) 12.5 % (0.0-12.0) Eosinophils (%) (Auto) 1.2 % (0.0-7.0) Basophils (%) (Auto) 0.7 % (0.0-2.0) Neutrophils # (Auto) 2.6 10 ^3/uL (1.6-8.6) Lymphocytes # (Auto) 3.1 10 ^3/uL (0.4-5.4) Monocytes # (Auto) 0.8 10 ^3/uL (0-1.3) Eosinophils # (Auto) 0.1 10 ^3/uL (0-0.8) Basophils # (Auto) 0 10 ^3/uL (0-0.2) Nucleated Red Blood Cells 0.1 % Sodium Level 143 mmol/L (136-145) Potassium Level 3.5 mmol/L (3.5-5.1) Chloride Level 108 mmol/L (98-107) Carbon Dioxide Level 26 mmol/L (20-31) Anion Gap 9 (5-15) Blood Urea Nitrogen 9 mg/dL (9-23) Creatinine 0.65 mg/dL (0.550-1.02) Glomerular Filtration Rate Calc 92 mL/min (>90) BUN/Creatinine Ratio 13.8 (10.0-20.0) Serum Glucose 89 mg/dL (74-106) Calcium Level 9.3 mg/dL (8.7-10.4) Total Bilirubin 0.6 mg/dL (0.2-1.0) Aspartate Amino Transferase (AST) 19 U/L (13-40) Alanine Aminotransferase (ALT) 17 U/L (7-40) Alkaline Phosphatase 38 U/L (46-116) Total Protein 5.0 g/dL (5.7-8.2) Albumin 3.5 g/dL (3.2-4.8) POC Glucose 91 mg/dl (70-106) Urine Color Yellow (Yellow) Urine Clarity Clear (Clear) Urine pH 6.0 (5.0-9.0) Urine Specific [place] > 1.035 (1.001-1.035) Urine Protein 1+ (Negative) Urine Ketones Trace (Negative) Urine Blood 2+ /uL (Negative) Urine Nitrite Negative (Negative) Urine Bilirubin Negative (Negative) Urine Urobilinogen Normal mg/dL (Negative) Urine Leukocyte Esterase Negative /uL (Negative) Urine RBC 87 /hpf (0 - 4) Urine Microscopic WBC 9 /HPF (0-5) Urine Squamous Epithelial Cells Few /hpf (<5) Urine Transitional Epithelial Cells Few /hpf (<2) Urine Bacteria Few /hpf (None Seen) Urine Mucus Few (None Seen) Urine Glucose Normal mg/dL (Normal) Test 02/19/25 19:02 Prothrombin Time 10.4 sec (9.3-11.8) Prothrombin Time INR 0.98 (0.9-1.15) Activated Partial Thromboplast Time 24.7 SEC (24.5-34.5) Lactic Acid Level 1.4 mmol/L (0.4-2.0) Lipase 71 U/L (12-53) Other Laboratory Tests 02/22/25 08:31 02/21/25 05:55 Brief Hx & Hospital Course: This is a 74 years old female with past medical history of leukemia, hypertension, asthma came to emergency department because of melena. The patient stated is progressive worse for the week prior to admission. The patient had a abdominal and pelvis CT showed mild wall thickening of the ascending colon tolerate with mild colitis. Mild wall thickening of stomach and proximal small bowel loop may due to inadequate distention gastroenteritis. A 3.7 x 2.6 cm right adrenal mass, a 1.2 cm of a right renal upper pole parapelvic hydro dense lesion with additional subcentimeter hypodense left renal lesion that too small to characterize. The patient subsequently had ultrasound of the renal which showed Right renal cyst measuring 1.2 cm. A suprarenal mass measuring 3.4 cm as seen on prior CT suggestive of a adrenal mass. No hydronephrosis. The patient subsequently had EGD done which showed: 1 cm sliding-type hiatal hernia with slightly irregular squamocolumnar junction and minimal grade a erosive esophagitis. Mild gastritis and duodenitis otherwise normal examination of the 2nd and 3rd part of the duodenum . Biopsy was taken. The patient was put on Protonix 40 mg once per day. The patient was advised to follow up with GI specialist for the biopsy report. I also advised the patient to follow up with primary care physician for referral for further management of her right adrenal mass. Activity as tolerated. Diet per home diet. Follow up with primary care physician 1-2 weeks. Physical exam: HEENT: Normocephalic atraumatic pupils equal react to light and accommodation. Extraocular muscles intact, conjunctiva pink, oropharynx moist, no thrush, no exudate. Lymphatic: No lymphadenopathy Cardiovascular exam: S1, S2 was heard. No murmurs, rubs, gallops Lung: Clear on auscultation bilaterally, no wheeze, rale, rhonchi. GI: Abdominal soft, nondistended, nontenderness, positive bowel sounds. Extremity: No crepitus, cyanosis, edema. Pedal pulses present bilateral. Full range of motion. Skin: Normal turgor, no rash. Psych: Alert, oriented x3. Neurology: No focal deficits, cranial nerve II to XII grossly intact. This medical document was created using an electronic medical record system with [employer] direct computerized dictation system. Although this document has been carefully reviewed, there may still be some phonetic and typographical errors. These areas are purely typographical due to imperfections of the software programs, and do not reflect any compromise in the patient's medical care. Condition at Discharge: Stable Final Diagnosis/Problems List Gastrointestinal bleed Esophagitis Intractable nausea and vomiting Dehydration Adrenal mass 3.4 cm Right renal mass Gastroenteritis Leukocytosis, unspecified Generalized weakness Discharge Disposition: Home Discharge Instruct/Medications Diet: Cardiac 2g Na,low cholest Activity: No Restrictions, As Tolerated Follow Up/Referral: PCP 1-2 WEEKS OUTPATIENT REFERAL FROM PCP FOR WORK UP FOR ADRENAL ADENOMA FOLLOW UP WITH DR LOGAN , GI 4-6 WEEKS Medications: PROTONIX 40MG DAILY RESUME HOME MEDS Discharge Statement: "Patient was advised to return to the ER or call 911 if any headaches, dizziness, shortness of breath, chest pain, abdominal pain, bleeding, fevers, or worsening of medical condition. Patient was counseled about treatment plan, medications, possible side effects, patientverbalized understanding. All questions were answered to the best of my ability. This discharge took greater then 30 minutes in planning, reviewing documentation, counseling the patient, and discussing with other team members." ASSESSMENT ASSESSMENT Assessment NAUSEA/VOMITING ESOPHAGITIS INCIDENTAL ADRENAL MASS 3.4 CM Date of Service: February 24, 2025 Billing Provider: ROMA GARCIA MD Common Visit Codes: [id number] DISCH DAY >30min ROMA GARCIA MD February 24, 2025 12:10
[2025-02-24 13:00] VITALS: BP 144/80; PULSE 60; RESP 18; TEMP 98; O2SAT 96
[2025-02-24 14:54] VITALS: BP 134/74; PULSE 61; RESP 18; TEMP 98.2; O2SAT 96
== END 2025-02-24 15:30 | disposition home or self-care (01) | DRG 371 ==
LOC: ER 18:43 → OVERFLOW 02-20 01:58 → TELE-EAST 02-20 15:21
PROVIDERS: ADMIT Internal Medicine; ATTEND Internal Medicine
PROC: 0DB68ZX Excision of Stomach, Via Natural or Artificial Opening Endoscopic, Diagnostic (ICD-10-PCS; 2025-02-23)
PROC: 0DB48ZX Excision of Esophagogastric Junction, Via Natural or Artificial Opening Endoscopic, Diagnostic (ICD-10-PCS; 2025-02-23)
PROC: 0DB98ZX Excision of Duodenum, Via Natural or Artificial Opening Endoscopic, Diagnostic (ICD-10-PCS; principal; 2025-02-23 13:00)
DX: A04.9 Bacterial intestinal infection, unspecified (principal); K22.11 Ulcer of esophagus with bleeding; K29.71 Gastritis, unspecified, with bleeding; K29.81 Duodenitis with bleeding; E27.9 Disorder of adrenal gland, unspecified; E86.0 Dehydration; I10 Essential (primary) hypertension; N28.89 Other specified disorders of kidney and ureter; K44.9 Diaphragmatic hernia without obstruction or gangrene; N28.1 Cyst of kidney, acquired; D72.829 Elevated white blood cell count, unspecified; J45.909 Unspecified asthma, uncomplicated; Z85.6 Personal history of leukemia; Z79.2 Long term (current) use of antibiotics; Z79.899 Other long term (current) drug therapy; Z90.710 Acquired absence of both cervix and uterus; Z82.49 Family history of ischemic heart disease and other diseases of the circulatory system
CPT/HCPCS: 36415; 43239; 71045; 74177; 76775; 80053; 81001; 82962; 83605; 83690; 85025; 85610; 85730; 86850; 86900; 86901; 87040; 96365; 96375; G0378; J2250; J2405; J2470; J3490